=== PATIENT | female | born 1970 | race African-American/Black ===

== ENCOUNTER 2017-04-03 23:10 | Emergency (ER) | payer OTHER ==
[2017-04-03 23:53] VITALS: BP 155/89; PULSE 101; TEMP 98.1; BMI 33.2
[2017-04-03] MEDS ORDERED: predniSONE 20 MG TABLET (UD) ONE (23:55)
[2017-04-03] MEDS ORDERED: AZITHROMYCIN 250 MG TABLET ONE (23:55)
[2017-04-03] MEDS ORDERED: ALBUTEROL SO4 2.5/IPRATROPIUM 0.5 INH SOL 3 ML VIAL.NEB. NEB STA (23:57)
--- NOTE | 2017-04-03 23:57 | PDOC ---
History of Present Illness - General History Source: Patient Exam Limitations: No Limitations - History of Present Illness Initial Comments: 04/04/17 00:13 The patient is a 46 year old female, with a significant past medical history of Asthma, CVA (with R arm weakness), COPD who presents to the emergency department with productive cough (clear) for the past 3 days. Patient tried many OTC medications however denied any relief. Patient complains of intermittent chest tightness and SOB. Patient denies any sick contacts or recent travel. Patient denies any fever or chills. She denies headache or dizziness. She denies abdominal pain, nausea, vomit, diarrhea or constipation. She denies dysuria, frequency, urgency or hematuria. Allergies: morphine, propoxyphene napsylate Past surgical history: appendectomy, cholecystectomy Social history: None PCP: Dr. Flanagan <Wilda Verduzco - Last Filed: 04/04/17 00:13> - General History Source: Patient <Delonte Motley - Last Filed: 04/04/17 01:44> - General Chief Complaint: Asthma Stated Complaint: ASTHMA Time Seen by Provider: 04/03/17 23:51 Past History <Wilda Verduzco - Last Filed: 04/04/17 00:13> - Past Medical History Anemia: No Asthma: Yes Cancer: No Cardiac Disorders: No CVA: Yes (RT ARM WEAKNESS,TIA) COPD: Yes CHF: No Dementia: No Diabetes: No GI Disorders: No Disorders: No HTN: Yes Hypercholesterolemia: No Liver Disease: No Seizures: No Thyroid Disease: No - Surgical History Abdominal Surgery: Yes Appendectomy: Yes Cardiac Surgery: No Cholecystectomy: Yes Lung Surgery: No Neurologic Surgery: No Orthopedic Surgery: No - Immunization History Immunization Up to Date: Yes - Suicide/Smoking/Psychosocial Hx Smoking Status: No Smoking History: Never smoked Have you smoked in the past 12 months: No Number of Cigarettes Smoked Daily: 0 Information on smoking cessation initiated: No Hx Alcohol Use: No Drug/Substance Use Hx: No Substance Use Type: None Hx Substance Use Treatment: No <Delonte Motley - Last Filed: 04/04/17 01:44> - Past Medical History Allergies/Adverse Reactions: Allergies Allergy/AdvReac Type Severity Reaction Status Date / Time morphine Allergy Itching Verified 04/03/17 23:53 propoxyphene napsylate Allergy Itching Verified 04/03/17 23:53 [From Gwen-N 100] Home Medications: Ambulatory Orders Lisinopril [Prinivil] 10 mg PO DAILY 09/23/15 Naproxen [Naprosyn -] 500 mg PO BID #14 tablet 05/01/16 Azithromycin [Zithromax -] 250 mg PO UTDICT #6 tab 04/04/17 Ibuprofen 800 mg PO TID #30 tablet 04/04/17 Methylprednisolone [Medrol Dose Silvino] 4 mg PO ASDIR #21 tablet 04/04/17 Review of Systems - Review of Systems Able to Perform ROS?: Yes Comments:: 04/04/17 00:13 GENERAL/CONSTITUTIONAL: No fever or chills. No weakness. HEAD, EYES, EARS, NOSE AND THROAT: No change in vision. No ear pain or discharge. No sore throat. GASTROINTESTINAL: No nausea, vomiting, diarrhea or constipation. GENITOURINARY: No dysuria, frequency, or change in urination. CARDIOVASCULAR: No chest pain or shortness of breath. RESPIRATORY: + cough + SOB. No wheezing, or hemoptysis. MUSCULOSKELETAL: No joint or muscle swelling or pain. No neck or back pain. SKIN: No rash NEUROLOGIC: No headache, vertigo, loss of consciousness, or change in strength/ sensation. ENDOCRINE: No increased thirst. No abnormal weight change. HEMATOLOGIC/LYMPHATIC: No anemia, easy bleeding, or history of blood clots. ALLERGIC/IMMUNOLOGIC: No hives or skin allergy. <Wilda Verduzco - Last Filed: 04/04/17 00:13> *Physical Exam - Vital Signs Last Vital Signs Temp Pulse Resp BP Pulse Ox 98.1 F 101 H 24 155/89 96 04/03/17 23:51 04/03/17 23:51 04/03/17 23:51 04/03/17 23:51 04/03/17 23:51 - Physical Exam Comments: 04/04/17 00:13 GENERAL: Awake, alert, and fully oriented, in no acute distress HEAD: No signs of trauma EYES: PERRLA, EOMI, sclera anicteric, conjunctiva clear ENT: Auricles normal inspection, hearing grossly normal, nares patent, oropharynx clear without exudates. Moist mucosa NECK: Normal ROM, supple, no lymphadenopathy, JVD, or masses LUNGS: +Decreased breath sounds bilaterally. Clear to auscultation bilaterally. No wheezes, and no crackles HEART: Regular rate and rhythm, normal S1 and S2, no murmurs, rubs or gallops ABDOMEN: Soft, nontender, normoactive bowel sounds. No guarding, no rebound. No masses EXTREMITIES: Normal range of motion, no edema. No clubbing or cyanosis. No cords, erythema, or tenderness NEUROLOGICAL: Cranial nerves II through XII grossly intact. Normal speech, normal gait SKIN: Warm, Dry, normal turgor, no rashes or lesions noted. <Wilda Verduzco - Last Filed: 04/04/17 00:13> - Vital Signs Last Vital Signs Temp Pulse Resp BP Pulse Ox 98.1 F 101 H 24 155/89 96 04/03/17 23:51 04/03/17 23:51 04/03/17 23:51 04/03/17 23:51 04/03/17 23:51 <Delonte Motley - Last Filed: 04/04/17 01:44> ED Treatment Course - Medications Given in the ED: ED Medications Discontinued Medications Generic Name Dose Route Start Last Admin Trade Name Freq PRN Reason Stop Dose Admin Albuterol/Ipratropium 1 amp 04/03/17 23:59 04/04/17 00:00 Duoneb - NEB 04/04/17 00:00 1 amp NOW ONE Administration Azithromycin 500 mg 04/03/17 23:58 04/03/17 23:59 Zithromax - PO 04/03/17 23:59 500 mg ONCE STA Administration Prednisone 60 mg 04/03/17 23:58 04/03/17 23:59 Deltasone - PO 04/03/17 23:59 Not Given ONCE ONE Prednisone 60 mg 04/03/17 23:58 04/03/17 23:58 Deltasone - PO 04/03/17 23:59 60 mg NOW ONE Administration <Wilda Verduzco - Last Filed: 04/04/17 00:13> - LABORATORY CBC & Chemistry Diagram: 04/04/17 00:49 04/04/17 00:49 <Delonte Motley - Last Filed: 04/04/17 01:44> Medical Decision Making - Medical Decision Making 04/04/17 01:43 Dr. Motley: The scribe's documentation has been prepared under my direction and personally reviewed by me in its entirery. I confirm that the note above accurately reflects all work, treatment, procedures, and medical decision making performed by me. <Delonte Motley - Last Filed: 04/04/17 01:44> *DC/Admit/Observation/Transfer - Attestations Scribe Attestion: 04/04/17 00:13 Documentation prepared by Wilda Verduzco, acting as medical language specialist for Delonte Motley DO <Wilda Verduzco - Last Filed: 04/04/17 00:13> - Discharge Dispostion Admit: No <Delonte Motley - Last Filed: 04/04/17 01:44> Diagnosis at time of Disposition: Asthma exacerbation - Discharge Dispostion Disposition: HOME Condition at time of disposition: Improved - Referrals Referrals: Tyler Flanagan MD [Primary Care Provider] - - Patient Instructions Printed Discharge Instructions: Asthma -- Adult
[2017-04-03] MEDS ORDERED: AZITHROMYCIN 250 MG TABLET PO STA (23:58)
[2017-04-03] MEDS ORDERED: predniSONE 20 MG TABLET (UD) PO ONE ×2 (23:58)
[2017-04-03] MEDS ORDERED: ALBUTEROL SO4 2.5/IPRATROPIUM 0.5 INH SOL 3 ML VIAL.NEB. NEB ONE (23:59)
[2017-04-04] MEDS ORDERED: MAGNESIUM SULF 50% (8.12 MEQ/2 ML-1 GM VIAL) IVPB ONE (00:36)
[2017-04-04 00:54] LABS: BASOPHIL 0.5 % (0-2.0); EOSINOPHIL 0.8 % (0-4.5); MCH 27.8 pg (25.7-33.7); MCHC 33.3 g/dl (32.0-36.0); MEAN CELL VOLUME 83.5 fl (80-96); MEAN PLT VOLUME 7.7 fl (7.5-11.1); PLATELET COUNT 263 K/MM3 (134-434); RDW 14.3 % (11.6-15.6); WHITE BLOOD COUNT 11.1 K/mm3 (4.0-10.0)
[2017-04-04] MEDS ORDERED: MAGNESIUM SULF 50% (8.12 MEQ/2 ML-1 GM VIAL) ONE (01:07)
== END 2017-04-04 02:13 | disposition home or self-care (01) ==
LOC: SUPCPDRO 23:10 → JER 23:10
PROC: 3E0F7GC Introduction of Other Therapeutic Substance into Respiratory Tract, Via Natural or Artificial Opening (ICD-10-PCS; principal; 2017-04-03)
PROC: 3E0F7GC Introduction of Other Therapeutic Substance into Respiratory Tract, Via Natural or Artificial Opening (ICD-10-PCS; 2017-04-03)
PROC: 3E033GC Introduction of Other Therapeutic Substance into Peripheral Vein, Percutaneous Approach (ICD-10-PCS; 2017-04-03)
DX: J45.901 Unspecified asthma with (acute) exacerbation (principal); J44.9 Chronic obstructive pulmonary disease, unspecified; I69.851 Hemiplegia and hemiparesis following other cerebrovascular disease affecting right dominant side
CPT/HCPCS: 36415; 85025; 94640; 96374; 99282-25

== ENCOUNTER 2017-04-18 11:08 | Inpatient (IN) | payer OTHER ==
[2017-04-18 11:15] VITALS: BMI 34.7
--- NOTE | 2017-04-18 11:40 | PDOC ---
History of Present Illness <Alvaro Fuentes - Last Filed: 04/18/17 14:04> - General History Source: Patient Exam Limitations: No Limitations - History of Present Illness Initial Comments: 04/18/17 16:50 The patient is a 46 year old female, with a significant past medical history of Asthma (previously intubated and admitted 3x), CVA, COPD, HTN who presents to the emergency department with chest pressure, cough and SOB for the past week. Patient was previously seen for cough in PMDs office and was given abx and steroids. Patients symptoms did not resolve and was continued on second course of steroids. Patient symptoms progressively worsened today with chills and cold sweats and chest discomfort. Patient attempted OTC medications with no relief. Patient reports her respiratory symptoms are similar in nature to her Asthma however feels new. Patient finished last course of steroids 2 days ago and presents to the ED for further evaluation. Patient reports sick contacts at work , and recent URI. She denies chest pain, headache or dizziness. She denies fever , chills, abdominal pain, nausea, vomit, diarrhea or constipation. She denies dysuria, frequency, urgency or hematuria. Allergies: morphine, propoxyphene napsylate Past surgical history: Appendectomy, Cholecystectomy Social history: None PCP: Dr. Disha Flanagan <Wilda Verduzco - Last Filed: 04/18/17 16:51> - General Chief Complaint: Respiratory Stated Complaint: SOB Time Seen by Provider: 04/18/17 11:39 Past History - Past Medical History Anemia: No Asthma: Yes Cancer: No Cardiac Disorders: No CVA: Yes (RT ARM WEAKNESS,TIA) COPD: Yes CHF: No Dementia: No Diabetes: No GI Disorders: No Disorders: No HTN: Yes Hypercholesterolemia: No Liver Disease: No Seizures: No Thyroid Disease: No - Surgical History Abdominal Surgery: Yes Appendectomy: Yes Cardiac Surgery: No Cholecystectomy: Yes Lung Surgery: No Neurologic Surgery: No Orthopedic Surgery: No - Immunization History Immunization Up to Date: Yes - Suicide/Smoking/Psychosocial Hx Smoking Status: No Smoking History: Never smoked Have you smoked in the past 12 months: No Number of Cigarettes Smoked Daily: 0 Hx Alcohol Use: No Drug/Substance Use Hx: No Substance Use Type: None Hx Substance Use Treatment: No <Alvaro Fuentes - Last Filed: 04/18/17 14:04> <Wilda Verduzco - Last Filed: 04/18/17 16:51> - Past Medical History Allergies/Adverse Reactions: Allergies Allergy/AdvReac Type Severity Reaction Status Date / Time morphine Allergy Itching Verified 04/03/17 23:53 propoxyphene napsylate Allergy Itching Verified 04/03/17 23:53 [From Darvocet-N 100] Home Medications: Ambulatory Orders Lisinopril [Prinivil] 10 mg PO DAILY 09/23/15 Albuterol 0.083% Nebulizer Leticia [Ventolin 0.083% Nebulizer Soln -] 1 neb NEB Q6H PRN 04/18/17 Albuterol Sulfate Inhaler - [Ventolin Hfa Inhaler -] 1 - 2 inh PO Q4H PRN Review of Systems - Review of Systems Able to Perform ROS?: Yes Comments:: 04/18/17 16:50 GENERAL/CONSTITUTIONAL: No fever or chills. No weakness. HEAD, EYES, EARS, NOSE AND THROAT: No change in vision. No ear pain or discharge. No sore throat. CARDIOVASCULAR: No chest pain or shortness of breath. RESPIRATORY: +cough, wheezing. No hemoptysis. GASTROINTESTINAL: No nausea, vomiting, diarrhea or constipation. GENITOURINARY: No dysuria, frequency, or change in urination. MUSCULOSKELETAL: No joint or muscle swelling or pain. No neck or back pain. SKIN: No rash NEUROLOGIC: No headache, vertigo, loss of consciousness, or change in strength/ sensation. ENDOCRINE: No increased thirst. No abnormal weight change. HEMATOLOGIC/LYMPHATIC: No anemia, easy bleeding, or history of blood clots. ALLERGIC/IMMUNOLOGIC: No hives or skin allergy. <Wilda Verduzco - Last Filed: 04/18/17 16:51> *Physical Exam - Vital Signs Last Vital Signs Temp Pulse Resp BP Pulse Ox 98.6 F 89 22 108/64 100 04/18/17 11:11 04/18/17 11:11 04/18/17 11:11 04/18/17 11:11 04/18/17 11:11 <Alvaro Fuentes - Last Filed: 04/18/17 14:04> - Vital Signs Last Vital Signs Temp Pulse Resp BP Pulse Ox 98.1 F 83 22 138/77 100 04/18/17 15:56 04/18/17 15:56 04/18/17 15:56 04/18/17 15:56 04/18/17 15:00 - Physical Exam Comments: 04/18/17 16:50 GENERAL: Awake, alert, and fully oriented, in no acute distress HEAD: No signs of trauma EYES: PERRLA, EOMI, sclera anicteric, conjunctiva clear ENT: Auricles normal inspection, hearing grossly normal, nares patent, oropharynx clear without exudates. Moist mucosa NECK: Normal ROM, supple, no lymphadenopathy, JVD, or masses LUNGS: +Poor air movement +with mild wheezing in R middle lobe. No crackles HEART: Regular rate and rhythm, normal S1 and S2, no murmurs, rubs or gallops ABDOMEN: Soft, nontender, normoactive bowel sounds. No guarding, no rebound. No masses EXTREMITIES: Normal range of motion, no edema. No clubbing or cyanosis. No cords, erythema, or tenderness NEUROLOGICAL: Normal speech, cranial nerves intact, negative pronator drift, 5/ 5 strength in all 4 extremities, normal sensation to light touch in all 4 extremities, normal cerebellar exam, normal gait, normal reflexes and tone SKIN: Warm, Dry, normal turgor, no rashes or lesions noted. <Wilda Verduzco - Last Filed: 04/18/17 16:51> ED Treatment Course - LABORATORY CBC & Chemistry Diagram: 04/18/17 12:14 04/18/17 12:14 <Alvaro Fuentes - Last Filed: 04/18/17 14:04> - LABORATORY CBC & Chemistry Diagram: 04/18/17 12:14 04/18/17 12:14 - ADDITIONAL ORDERS Additional order review: Laboratory Results 04/18/17 04/18/17 04/18/17 12:55 12:14 12:14 D-Dimer < 200 VBG pH 7.30 L POC VBG pCO2 50.0 POC VBG pO2 80.1 H Mixed VBG HCO3 24.2 Sodium Potassium Chloride Carbon Dioxide Anion Gap BUN Creatinine Creat Clearance w eGFR Random Glucose Calcium Total Bilirubin AST ALT Alkaline Phosphatase Troponin I < 0.02 Total Protein Albumin Urine HCG, Qual 04/18/17 04/18/17 12:14 12:14 D-Dimer VBG pH POC VBG pCO2 POC VBG pO2 Mixed VBG HCO3 Sodium 140 Potassium 3.9 Chloride 106 Carbon Dioxide 27 Anion Gap 7 L BUN 9 Creatinine 0.9 Creat Clearance w eGFR > 60 Random Glucose 101 D Calcium 9.0 Total Bilirubin 0.3 AST 14 L D ALT 21 D Alkaline Phosphatase 96 Troponin I Total Protein 6.8 Albumin 3.5 Urine HCG, Qual Negative 04/18/17 13:54 Influenza Types A,B Antigen (ARIELLE) - Final Nasopharyngeal Swab - Final 04/18/17 12:14 RBC 4.39 MCV 83.2 MCHC 32.5 RDW 14.0 MPV 7.8 Neutrophils % 61.9 Lymphocytes % 33.2 Monocytes % 4.3 Eosinophils % 0.4 Basophils % 0.2 - Medications Given in the ED: ED Medications Discontinued Medications Generic Name Dose Route Start Last Admin Trade Name Freq PRN Reason Stop Dose Admin Albuterol Sulfate 1 amp 04/18/17 12:02 04/18/17 15:02 Ventolin 0.083% Nebulizer Soln - NEB 04/18/17 12:33 1 amp Q15M PRN Administration Dyspnea Albuterol/Ipratropium 1 amp 04/18/17 12:02 04/18/17 12:30 Duoneb - NEB 04/18/17 12:03 1 amp ONCE ONE Administration Guaifenesin 1 tablet 04/18/17 13:10 04/18/17 14:30 Mucinex Dm - PO 04/18/17 13:11 1 tablet ONCE ONE Administration Magnesium Sulfate 2 gm 04/18/17 12:02 04/18/17 12:30 Magnesium Sulfate IVPB 04/18/17 12:03 2 gm ONCE ONE Administration Methylprednisolone Sodium Succinate 125 mg 04/18/17 12:02 04/18/17 12:30 Solu-Medrol - IVPB 04/18/17 12:03 125 mg ONCE ONE Administration Methylprednisolone Sodium Succinate 40 mg 04/18/17 15:00 04/18/17 16:12 Solu-Medrol - IVPB Not Given Q6H-IV CESAR <Wilda Verduzco - Last Filed: 04/18/17 16:51> Medical Decision Making - Medical Decision Making 04/18/17 13:00 46-year-old female with a history of asthma complicated by multiple admissions and intubations, multiple medical problems presents with 3 weeks of a progressive asthma exacerbation despite 2 courses of steroids and outpatient antibiotics. Vitals are unremarkable. Exam remarkable for poor air movement and mild wheezing. Peak flow initially was 150. Given the chest pain/chronicity of the symptoms despite steroids abx, ACS, CHF, and PE are on the differential. Plan: -labs -dimer -cxr -nebs -flu swab -methylpred -Mg -admit 04/18/17 13:59 Chest x-ray unremarkable. Labs including d-dimer and troponin are negative. Repeat peak flow s/p nebs is 250. Will admit for asthma exacerbation, spoke with CHINA Fong from hospitalist team. Case discussed in detail with admitting physician including history, physical exam and ancillary studies. Admitting physician has assumed care for the patient, will follow all pending diagnostics and will complete the evaluation and treatment. 04/18/17 14:04 <Alvaro Fuentes - Last Filed: 04/18/17 14:04> *DC/Admit/Observation/Transfer - Discharge Dispostion Admit: Yes - Attestations Physician Attestion: 04/18/17 13:56 I, Dr. Alvaro Fuentes MD, attest that this document has been prepared under my direction and personally reviewed by me in its entirety. I further attest, that it accurately reflects all work, treatment, procedures and medical decision -making performed by me. <Alvaro Fuentes - Last Filed: 04/18/17 14:04> - Attestations Scribe Attestion: 04/18/17 16:51 Documentation prepared by Wilda Verduzco, acting as medical field representative for Alvaro Fuentes MD <Wilda Verduzco - Last Filed: 04/18/17 16:51> Diagnosis at time of Disposition: Asthma - Discharge Dispostion Condition at time of disposition: Stable - Referrals
[2017-04-18] MEDS ORDERED: ALBUTEROL SO4 2.5/IPRATROPIUM 0.5 INH SOL 3 ML VIAL.NEB. NEB ONE ×2 (12:02→12:15)
[2017-04-18] MEDS ORDERED: methylPREDNISolone NA SUCC 125 MG/2 ML VIAL IVPB ONE (12:02)
[2017-04-18] MEDS ORDERED: MAGNESIUM SULF 50% (8.12 MEQ/2 ML-1 GM VIAL) IVPB ONE (12:02)
[2017-04-18] MEDS ORDERED: methylPREDNISolone NA SUCC 125 MG/2 ML VIAL ONE (12:15)
[2017-04-18] MEDS ORDERED: MAGNESIUM SULF 50% (8.12 MEQ/2 ML-1 GM VIAL) ONE (12:15)
[2017-04-18] MEDS ORDERED: ALBUTEROL SO4 0.083% IH SOL 2.5 MG/3 ML VIAL.NEB. NEB ONE (12:15)
[2017-04-18] MEDS: ALBUTEROL SO4 0.083% IH SOL 2.5 MG/3 ML VIAL.NEB. NEB PRN ×3 (12:50→15:02)
[2017-04-18 12:52] LABS: BASOPHIL 0.2 % (0-2.0); EOSINOPHIL 0.4 % (0-4.5); MCH 27.1 pg (25.7-33.7); MCHC 32.5 g/dl (32.0-36.0); MEAN CELL VOLUME 83.2 fl (80-96); MEAN PLT VOLUME 7.8 fl (7.5-11.1); NEUTROPHILS 61.9 % (42.8-82.8); PLATELET COUNT 312 K/MM3 (134-434); WHITE BLOOD COUNT 10.5 K/mm3 (4.0-10.0)
[2017-04-18 13:06] LABS: VENOUS BLOOD GAS HCO3 24.2 meq/L (19-25)
[2017-04-18 13:07] LABS: VENOUS PH 7.3 (7.32-7.42)
[2017-04-18] MEDS ORDERED: guaiFENesin/D-METHORPHAN HB 1 EACH TAB.ER.12H PO ONE (13:10)
[2017-04-18 13:30] LABS: ALBUMIN 3.5 g/dl (3.4-5.0); ANION GAP 7 (8-16); BILIRUBIN,TOTAL 0.3 mg/dL (0.2-1.0); CO2 27 mmol/L (21-32); CREATININE 0.9 mg/dL (0.55-1.02); GLUCOSE,RANDOM 101 mg/dL (74-106); SGOT/AST 14 U/L (15-37); SGPT/ALT 21 U/L (12-78); TOT PROT 6.8 g/dl (6.4-8.2)
[2017-04-18 13:31] LABS: ALK PHOS 96 U/L (45-117)
[2017-04-18] MEDS ORDERED: ALBUTEROL SO4 2.5/IPRATROPIUM 0.5 INH SOL 3 ML VIAL.NEB. NEB PRN (14:32)
--- NOTE | 2017-04-18 14:47 | HP ---
CHIEF COMPLAINT: "I am having difficulty breathing" PCP: Dr. Flanagan HISTORY OF PRESENT ILLNESS: This is a 46 year old female with PMHx of asthma (hx of intubations), HLD, who presented to the ED with difficulty breathing, dyspnea on exertion since 03/29. The patient reports she saw her pcp twice since 03/29 and was placed on steroid tapers and a Zpak which she completed about 1 week ago. She reports not feeling better with those medications and also having a productive cough. She reports having been intubated in the past 2/2 asthma. The patient denies fever, chills, chest pain, nausea, vomiting, dizziness, headache, lower extremity edema. 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 ER course was notable for: (1) d-dimer negative (2) Solu-medrol 125mg IVPB (3) Chest x-ray with no acute lung disease present Recent Travel: denies PAST MEDICAL HISTORY: as above Social History: Smoking: denies Alcohol: denies Drugs: denies Family History: Allergies morphine Allergy (Verified 04/03/17 23:53) Itching propoxyphene napsylate [From Darvocet-N 100] Allergy (Verified 04/03/17 23:53) Itching HOME MEDICATIONS: Home Medications Medication Instructions Recorded Lisinopril [Prinivil] 10 mg PO DAILY 09/23/15 Albuterol 0.083% Nebulizer Leticia 1 neb NEB Q6H PRN 04/18/17 [Ventolin 0.083% Nebulizer Soln -] Albuterol Sulfate Inhaler - 1 - 2 inh PO Q4H PRN 04/18/17 [Ventolin Hfa Inhaler -] REVIEW OF SYSTEMS CONSTITUTIONAL: Absent: fever, chills, diaphoresis, generalized weakness, malaise, loss of appetite, weight change HEENT: Absent: rhinorrhea, nasal congestion, throat pain, throat swelling, difficulty swallowing, mouth swelling, ear pain, eye pain, visual changes CARDIOVASCULAR: Absent: chest pain, syncope, palpitations, irregular heart rate , lightheadedness, peripheral edema RESPIRATORY: + productive cough and shortness of breath since 03/29/17. Failed outpatient steroids and antibiotics. Absent: orthopnea, wheezing, stridor, hemoptysis GASTROINTESTINAL:Absent: abdominal pain, abdominal distension, nausea, vomiting , diarrhea, constipation, melena, hematochezia GENITOURINARY: Absent: dysuria, frequency, urgency, hesitancy, hematuria, flank pain, genital pain MUSCULOSKELETAL: Absent: myalgia, arthralgia, joint swelling, back pain, neck pain SKIN: Absent: rash, itching, pallor HEMATOLOGIC/IMMUNOLOGIC: Absent: easy bleeding, lymphadenopathy ENDOCRINE:Absent: unexplained weight gain, unexplained weight loss, heat intolerance, cold intolerance NEUROLOGIC: Absent: headache, focal weakness or paresthesias, dizziness, unsteady gait, seizure, mental status changes, bladder or bowel incontinence PSYCHIATRIC: Absent: anxiety, depression PHYSICAL EXAMINATION Vital Signs - 24 hr 04/18/17 11:11 Temperature 98.6 F Pulse Rate 89 Respiratory 22 Rate Blood Pressure 108/64 O2 Sat by Pulse 100 Oximetry (%) GENERAL: Awake, alert, and fully oriented, in no acute distress. HEAD: Normal with no signs of trauma. EYES: Pupils equal, round and reactive to light, sclera anicteric, conjunctiva clear. No lid lag. EARS, NOSE, THROAT: Ears normal, nares patent, Moist mucous membranes. NECK: Normal range of motion, supple without lymphadenopathy LUNGS: Decreased breath sounds bilaterally. Increased work of breathing. No accessory muscles or wheezing noted HEART: Regular rate and rhythm, normal S1 and S2 without murmur, rub or gallop. ABDOMEN: Soft, nontender, not distended, normoactive bowel sounds, no guarding, no rebound, no masses. No hepatomegaly or splenomegaly. MUSCULOSKELETAL: Normal range of motion at all joints. No bony deformities or tenderness. No CVA tenderness. UPPER EXTREMITIES: 2+ pulses, warm, well-perfused. No cyanosis. No clubbing. No peripheral edema. LOWER EXTREMITIES: 2+ pulses, warm, well-perfused. No calf tenderness. No peripheral edema. NEUROLOGICAL: Cranial nerves II-XII intact. Normal speech. Normal gait. PSYCHIATRIC: Cooperative. Good eye contact. Appropriate mood and affect. SKIN: Warm, dry, normal turgor, no rashes or lesions noted, normal capillary refill. CBCD WBC 10.5 K/mm3 (4.0-10.0) H 04/18/17 12:14 RBC 4.39 M/mm3 (3.60-5.2) 04/18/17 12:14 Hgb 11.9 GM/dL (10.7-15.3) 04/18/17 12:14 Hct 36.5 % (32.4-45.2) 04/18/17 12:14 MCV 83.2 fl (80-96) 04/18/17 12:14 MCHC 32.5 g/dl (32.0-36.0) 04/18/17 12:14 RDW 14.0 % (11.6-15.6) 04/18/17 12:14 Plt Count 312 K/MM3 (134-434) 04/18/17 12:14 MPV 7.8 fl (7.5-11.1) 04/18/17 12:14 CMP Sodium 140 mmol/L (136-145) 04/18/17 12:14 Potassium 3.9 mmol/L (3.5-5.1) 04/18/17 12:14 Chloride 106 mmol/L (98-107) 04/18/17 12:14 Carbon Dioxide 27 mmol/L (21-32) 04/18/17 12:14 Anion Gap 7 (8-16) L 04/18/17 12:14 BUN 9 mg/dL (7-18) 04/18/17 12:14 Creatinine 0.9 mg/dL (0.55-1.02) 04/18/17 12:14 Creat Clearance w eGFR > 60 (>60) 04/18/17 12:14 Random Glucose 101 mg/dL (74-106) D 04/18/17 12:14 Calcium 9.0 mg/dL (8.5-10.1) 04/18/17 12:14 Total Bilirubin 0.3 mg/dL (0.2-1.0) 04/18/17 12:14 AST 14 U/L (15-37) L D 04/18/17 12:14 ALT 21 U/L (12-78) D 04/18/17 12:14 Alkaline Phosphatase 96 U/L (45-117) 04/18/17 12:14 Total Protein 6.8 g/dl (6.4-8.2) 04/18/17 12:14 Albumin 3.5 g/dl (3.4-5.0) 04/18/17 12:14 CARDIAC ENZYMES Troponin I < 0.02 ng/ml (0.00-0.05) 04/18/17 12:14 Assessment: This is a 46 year old female with PMHx of asthma (hx of intubations) , HTN, who presented to the ED with difficulty breathing, dyspnea on exertion since 03/29. Plan: 1) Acute asthma exacerbation - Solumedrol 40mg IVPB q6h - Duonebs q4h - Start Singulair - Start Symbicort - F/u Influenza A&B screen - Monitor closely - F/u pulmonary consult 2) HTN - Continue Lisinopril 3) F/E/N: - Sodium controlled diet - Monitor electrolytes 4) Prophylaxis: - OOB ambulating - Heparin 5,000u sq tid (patient with GARCIA so spends most of day in bed) 5) Dispo: - Once condition improves, requires continued inpatient care CODE STATUS: FULL CODE Problem List - Problem (1) Asthma exacerbation Code(s): J45.901 - UNSPECIFIED ASTHMA WITH (ACUTE) EXACERBATION Visit type - Emergency Visit Emergency Visit: Yes Care time: The patient presented to the Emergency Department on the above date and was hospitalized for further evaluation of their emergent condition. - New Patient This patient is new to me today: Yes Date on this admission: 04/18/17 - Critical Care Critical Care patient: No
[2017-04-18] MEDS ORDERED: methylPREDNISolone NA SUCC 40 MG/1 ML VIAL IVPB SCH (15:00)
--- NOTE | 2017-04-18 15:57 | PN ---
Progress Note (short form) - Note Progress Note: PULMONARY CONSULTATION DICTATED 04/18/17 IMP CHRONIC PERSISTENT ASTHMA WITH ACUTE EXACERBATION URI H/O INTUBATION X2 HTN S/P CVA R/O OSAS PLAN IV STEROIDS INHALED BRONCHODILATORS INHALED STEROIDS MONITOR PEAK FLOW ANTI-TUSSIVES SLEEP SCREEN DR PARDO Problem List - Problems (1) Asthma Code(s): J45.909 - UNSPECIFIED ASTHMA, UNCOMPLICATED (2) Bronchitis Code(s): J40 - BRONCHITIS, NOT SPECIFIED ACUTE OR CHRONIC (3) Acute dyspnea Code(s): R06.00 - DYSPNEA, UNSPECIFIED (4) Asthma exacerbation Code(s): J45.901 - UNSPECIFIED ASTHMA WITH (ACUTE) EXACERBATION (5) HTN (hypertension) Code(s): I10 - ESSENTIAL (PRIMARY) HYPERTENSION (6) History of CVA in adulthood Code(s): Z86.73 - PRSNL HX OF TIA (TIA), AND CEREB INFRC W/O RESID DEFICITS
[2017-04-18] MEDS ORDERED: PT OWN MED DRAWER 7, Y5N ONE ×2 (16:14→21:09)
[2017-04-18] MEDS: HEPARIN NA (PORCINE) 5,000 UNITS/ML 1ML VIAL SQ SCH (17:31)
[2017-04-18] MEDS: TIOTROPIUM BROMIDE 18 MCG/INH (DEVICE W/ 5 CAPSULES) IH SCH (17:31)
[2017-04-18] MEDS: ALBUTEROL SO4 0.5 % INH SOLN 2.5 MG/0.5 ML VIAL.NEB. NEB PRN ×2 (18:42→22:50)
--- NOTE | 2017-04-18 19:27 | CONS ---
DATE OF CONSULTATION: 04/18/2017 REFERRING PROVIDER: GARY Thorne The patient is a 46-year-old black female, known to me from previous hospitalization, with a past medical history of chronic persistent asthma, history of intubations x2, hyperlipidemia, hypertension, history of CVA, admitted to [facility] with a complaint of 3-week history of increasing shortness of breath, cough, and bronchospasm. Patient states she developed the above symptoms approximately 3 weeks ago. At the time, she was placed on prednisone 20 mg and started on antibiotic. Symptoms did not improve, at which time a couple of weeks ago she presented to the emergency room. In the ER, she was given high-dose steroid, which initially offered improvement, and discharged home. Again, she lowered her prednisone dose and started developing some shortness of breath, cough productive of greenish sputum, and wheezing. She presented back to the emergency room with the above today. As stated before, she has a history of intubation x2, last being in 2013. She is a nonsmoker. There is no history of occupational exposure to chemicals or fumes. She states that she uses inhaled beta agonists 3 to 4 times daily and has frequent nocturnal symptoms requiring use of inhaled beta agonist. She also states she is a heavy snorer, has occasional daytime sleepiness and witnessed apnea episodes. She denies any history of DVT or PE in the past. PAST MEDICAL HISTORY: Again, asthma, hypertension, hyperlipidemia, CVA. Current medications include Symbicort, Solu-Medrol, Prinivil, heparin, DuoNeb, and Singulair. REVIEW OF SYSTEMS: Positive cough, positive shortness of breath. No fever, no chills. No chest pain, no palpitation. No abdominal pain. No lower extremity edema. PHYSICAL EXAMINATION: General: A well-developed, well-nourished female, awake, alert, in no acute distress. Vital Signs: She is currently afebrile. Blood pressure 138/77. Respiratory rate 22. O2 saturation is 100% on nasal cannula. HEENT: Normocephalic, atraumatic. Neck: Supple without adenopathy. Heart: Regular, S1, S2. Chest: Scattered bilateral wheezes. Abdomen: Soft. Bowel sounds are positive. Extremities: No cyanosis, edema. LABORATORY DATA: WBC 10.5, hemoglobin 11.9, hematocrit 36.5, platelet count 312,000. D-dimer less than 200, pH 7.30, pCO2 of 50, a pO2 of 80, bicarbonate 24, BUN 9, creatinine 0.9. Chest x-ray: No infiltrates, no effusions. IMPRESSION: 1. Chronic persistent asthma, acute exacerbation, likely secondary to recent upper respiratory infection. 2. History of respiratory failure in the past, requiring ventilatory support. 3. Hypertension. 4. Status post cerebrovascular accident. 5. Likely obstructive sleep apnea. PLAN: IV steroids, inhaled bronchodilators. Monitor peak flow. Antitussives. Also a sleep screen. MASTER PARDO M.D. [id number]
[2017-04-18] MEDS: MONTELUKAST NA 10 MG TABLET PO SCH (21:20)
[2017-04-18] MEDS: BUDESONIDE/FORMETEROL FUMARATE 160/4.5 mcg INHALER IH SCH (21:21)
[2017-04-18] MEDS: methylPREDNISolone NA SUCC 40 MG/1 ML VIAL IVPB SCH (21:22)
[2017-04-18] MEDS ORDERED: MELATONIN 5 MG TABLETS PO ONE (22:32)
[2017-04-18] MEDS: guaiFENesin/D-METHORPHAN HB 10 ML UNIT-DOSE CUPS PO PRN (23:04)
[2017-04-19] MEDS: methylPREDNISolone NA SUCC 40 MG/1 ML VIAL IVPB SCH ×3 (02:03→17:39)
[2017-04-19] MEDS: HEPARIN NA (PORCINE) 5,000 UNITS/ML 1ML VIAL SQ SCH ×3 (02:07→18:55)
[2017-04-19 07:37] LABS: MCH 26.9 pg (25.7-33.7); MCHC 32.4 g/dl (32.0-36.0); MEAN CELL VOLUME 83.2 fl (80-96); MEAN PLT VOLUME 8.2 fl (7.5-11.1); PLATELET COUNT 320 K/MM3 (134-434); RDW 14.4 % (11.6-15.6); WHITE BLOOD COUNT 22.9 K/mm3 (4.0-10.0)
[2017-04-19 07:56] LABS: ALBUMIN 3.2 g/dl (3.4-5.0); ANION GAP 8 (8-16); CALCIUM 9.4 mg/dL (8.5-10.1); CO2 24 mmol/L (21-32); CREATININE 0.9 mg/dL (0.55-1.02); GLUCOSE,RANDOM 139 mg/dL (74-106); MAGNESIUM 2.3 mg/dL (1.8-2.4); PHOSPHOROUS 2.6 mg/dL (2.5-4.9); SGOT/AST 12 U/L (15-37); SGPT/ALT 18 U/L (12-78)
[2017-04-19 07:58] LABS: ALK PHOS 93 U/L (45-117); BILIRUBIN,TOTAL 0.3 mg/dL (0.2-1.0)
--- NOTE | 2017-04-19 08:19 | PN ---
Physical Exam: SUBJECTIVE: Patient seen and examined at bedside. She is doing much better, breathing is better, no wheezing, still has nonproductive cough, but no other complaints. She denies fever, chills, N/V/D/C. Peak flow done at bedside 250, BPF 250. OBJECTIVE: Vital Signs Period Temp Pulse Resp BP Sys/Shay Pulse Ox Last 24 Hr 97.7 F-98.1 F 65-85 18-22 124-146/71-82 97-100 GENERAL: Awake, alert, and fully oriented, in no acute distress HEAD: Normal with no signs of trauma EYES: sclera anicteric, conjunctiva clear EARS, NOSE, THROAT: Moist mucous membranes NECK: No appreciated JVD while sitting upright LUNGS: Diminished breath sounds, No wheezes, and no crackles. No accessory muscle use HEART: Regular rate and rhythm, no murmur ABDOMEN: Soft, non tender, no distended, normal active bowel sounds, no guarding , no rebound MUSCULOSKELETAL: No CVA tenderness LOWER EXTREMITIES: warm, well-perfused, no peripheral edema NEUROLOGICAL: Normal mentation, grossly normal motor PSYCHIATRIC: Appropriate mood and affect SKIN: Warm and dry, no jaundice Laboratory Results - last 24 hr 04/19/17 04/19/17 06:00 06:00 WBC 22.9 H D RBC 4.35 Hgb 11.7 Hct 36.2 MCV 83.2 MCH 26.9 MCHC 32.4 RDW 14.4 Plt Count 320 MPV 8.2 Sodium 139 Potassium 4.7 D Chloride 107 Carbon Dioxide 24 Anion Gap 8 BUN 10 Creatinine 0.9 Creat Clearance w eGFR > 60 Random Glucose 139 H D Calcium 9.4 Phosphorus 2.6 D Magnesium 2.3 D Total Bilirubin 0.3 AST 12 L ALT 18 Alkaline Phosphatase 93 Total Protein 7.0 Albumin 3.2 L Active Medications Generic Name Dose Route Start Last Admin Trade Name Freq PRN Reason Stop Dose Admin Albuterol Sulfate 1 amp 04/18/17 16:05 04/18/17 22:50 Ventolin 0.5% - NEB 1 amp Q4H PRN Administration SHORT OF BREATH/WHEEZING Budesonide/Formoterol Fumarate 2 puff 04/18/17 22:00 04/18/17 21:21 Symbicort 160/4.5mcg - IH 2 puff BID CESAR Administration Guaifenesin 10 ml 04/18/17 16:05 04/18/17 23:04 Robitussin Dm - PO 10 ml Q6H PRN Administration COUGH Heparin Sodium (Porcine) 5,000 unit 04/18/17 18:00 04/19/17 02:07 Heparin - SQ Not Given Q8H-IV CESAR Lisinopril 10 mg 04/19/17 10:00 Prinivil PO DAILY CESAR Methylprednisolone Sodium Succinate 80 mg 04/18/17 16:03 04/19/17 02:03 Solu-Medrol - IVPB 80 mg Q6H-IV CESAR Administration Montelukast Sodium 10 mg 04/18/17 22:00 04/18/17 21:20 Singulair - PO 10 mg HS CESAR Administration Tiotropium [place] 1 puff 04/18/17 16:15 04/18/17 17:31 Spiriva - IH 1 puff DAILY CESAR Administration CBC, BMP 04/19/17 06:00 04/19/17 06:00 ASSESSMENT/PLAN: This is a 46 year old female with PMHx of asthma (hx of intubations), HTN, who presented to the ED with difficulty breathing, dyspnea on exertion since 03/29. #Acute asthma exacerbation - Solumedrol 40mg IVPB q6h, was increased yesterday to 80 mg , decreased again to day by pulm to 40 . -if continues to improve, can likely change steroids to PO in AM - Duo-nebs q4h - continue Singular - continue Symbicort - Guaifenesin for cough - F/u Influenza A&B screen negative - Monitor closely - F/u pulmonary consult - monitor peak flow # HTN - Continue Lisinopril 10 mg PO daily # F/E/N: - Sodium controlled diet - Monitor electrolytes # Prophylaxis: - OOB ambulating - Heparin 5,000u sq tid (patient with GARCIA so spends most of day in bed) # Dispo: - Once condition improves, requires continued inpatient care #CODE STATUS: FULL CODE Visit type - Emergency Visit Emergency Visit: Yes ED Registration Date: 04/18/17 Care time: The patient presented to the Emergency Department on the above date and was hospitalized for further evaluation of their emergent condition. - New Patient This patient is new to me today: Yes Date on this admission: 04/19/17 - Critical Care Critical Care patient: No - Discharge Referral Referred to [facility] No
[2017-04-19] MEDS ORDERED: PT OWN MED DRAWER 7, Y5N ONE (08:51)
[2017-04-19] MEDS: LISINOPRIL 10 MG TABLET (FP) PO SCH (09:37)
[2017-04-19] MEDS: BUDESONIDE/FORMETEROL FUMARATE 160/4.5 mcg INHALER IH SCH ×2 (09:42→21:24)
[2017-04-19] MEDS: TIOTROPIUM BROMIDE 18 MCG/INH (DEVICE W/ 5 CAPSULES) IH SCH (09:43)
--- NOTE | 2017-04-19 10:41 | PN ---
Progress Note (short form) - Note Progress Note: PULMONARY Breathing better today but has not ambulated much. No fevers or chills. + nonproductive cough and wheezing. Peak flow done at bedside 250, BPF 250. Last Vital Signs Temp Pulse Resp BP Pulse Ox 97.7 F 77 20 124/75 97 04/19/17 06:00 04/19/17 06:00 04/19/17 06:00 04/19/17 06:00 04/18/17 21:00 Gen: NAD at rest Heart: RRR Lung: distant breath sounds, no wheezes Abd: soft, nontender Ext: no edema CBC, BMP 04/19/17 06:00 04/19/17 06:00 Active Medications Albuterol Sulfate (Ventolin 0.5% -) 1 amp NEB Q4H PRN PRN Reason: SHORT OF BREATH/WHEEZING Last Admin: 04/18/17 22:50 Dose: 1 amp Budesonide/Formoterol Fumarate (Symbicort 160/4.5mcg -) 2 puff IH BID [facility] Last Admin: 04/19/17 09:42 Dose: 2 puff Guaifenesin (Robitussin Dm -) 10 ml PO Q6H PRN PRN Reason: COUGH Last Admin: 04/18/17 23:04 Dose: 10 ml Heparin Sodium (Porcine) (Heparin -) 5,000 unit SQ Q8H-IV [facility] Last Admin: 04/19/17 09:39 Dose: Not Given Lisinopril (Prinivil) 10 mg PO DAILY [facility] Last Admin: 04/19/17 09:37 Dose: 10 mg Methylprednisolone Sodium Succinate (Solu-Medrol -) 80 mg IVPB Q6H-IV [facility] Last Admin: 04/19/17 09:37 Dose: 80 mg Montelukast Sodium (Singulair -) 10 mg PO HS [facility] Last Admin: 04/18/17 21:20 Dose: 10 mg Tiotropium [place] (Spiriva -) 1 puff IH DAILY [facility] Last Admin: 04/19/17 09:43 Dose: 1 puff A/P Acute Asthma Exacerbation URI h/o CVA HTN - will decrease medrol to 40mg q8h - inhaled bronchodilators - monitor peak flow - singulair - ambulate hallways today - if continues to improve, can likely change steroids to PO in AM
--- NOTE | 2017-04-19 14:17 | EKG ---
Test Reason : Blood Pressure : / mmHG Vent. Rate : 068 BPM Atrial Rate : 068 BPM P-R Int : 138 ms QRS Dur : 082 ms QT Int : 390 ms P-R-T Axes : 046 033 -06 degrees QTc Int : 414 ms NORMAL SINUS RHYTHM NORMAL ECG WHEN COMPARED WITH ECG OF 17-AUG-2015 16:14, VENT. RATE HAS DECREASED BY 36 BPM NON-SPECIFIC CHANGE IN ST SEGMENT IN ANTERIOR LEADS QT HAS SHORTENED Confirmed by BART HERNANDEZ, RUFUS ([id number]) on 04/19/2017 2:16:49 PM Referred By: Confirmed By:RUFUS ARRIAGA MD
--- NOTE | 2017-04-19 17:13 | PN ---
Teaching Attending Note Name of Resident: Alex Cardenas ATTENDING PHYSICIAN STATEMENT I saw and evaluated the patient. I reviewed the resident's note and discussed the case with the resident. I agree with the resident's findings and plan as documented. SUBJECTIVE:breathing is improved. continues to have non productive cough. chest pressure is mostly resolved at this time. has been constant for the past few weeks. denies fever,chills, N/v/C/D states she was given a zpack and medrol dose pack a week ago with no relief. then was given steroid injection? by per PMD in the office instructed to come to ER if no improvement. OBJECTIVE: Last Vital Signs Temp Pulse Resp BP Pulse Ox 97.7 F 77 20 126/61 95 04/19/17 13:57 04/19/17 13:57 04/19/17 13:57 04/19/17 13:57 04/19/17 13:00 General NAD CV S1 S2 RRR no murmur/rub/gallop Lungs CTA B/L no wheezing/rales/rhonchi ASSESSMENT AND PLAN: 46 yo F with PMHx of asthma (hx of intubations), HTN, who presented to the ED with difficulty breathing, dyspnea on exertion since 03/29. 1. Acute asthma exacerbation- clinically improved. saturating 98% on RA. Peak Flow 250. states baseline is almost 400. steroids decreased to 40mg Q8H. started on singulair, spiriva and symbicort. nebs prn. supplemental oxygen as needed. pulmonary consulted. will need slow steroid taper. 2. HTN-controlled. Continue Lisinopril 3. DVT ppx- hep sq 4. plan for d/c in AM if clinically improves.
[2017-04-19] MEDS: MONTELUKAST NA 10 MG TABLET PO SCH (21:24)
[2017-04-19] MEDS ORDERED: MELATONIN 5 MG TABLETS PO ONE (23:28)
[2017-04-19] MEDS: guaiFENesin/D-METHORPHAN HB 10 ML UNIT-DOSE CUPS PO PRN (23:42)
[2017-04-20] MEDS: HEPARIN NA (PORCINE) 5,000 UNITS/ML 1ML VIAL SQ SCH ×3 (02:04→17:17)
[2017-04-20] MEDS: methylPREDNISolone NA SUCC 40 MG/1 ML VIAL IVPB SCH ×3 (02:04→09:50)
[2017-04-20 08:25] LABS: ARTERIAL BLD GAS O2 SATURATION 96.5 % (90-98.9); ARTERIAL BLOOD GAS BASE EXCESS 2.4 meq/l (-2-2); ARTERIAL BLOOD GAS HCO3 27.3 meq/L (22-26); ARTERIAL BLOOD GAS pH 7.39 (7.35-7.45)
[2017-04-20 08:28] LABS: ALLENS TEST POSITIVE
[2017-04-20 08:29] LABS: ART PUNCT SITE LEFT RADIAL; LPM/O2% 21%; PT. ON O2? NO; TYPE OF O2 R/A
[2017-04-20 08:30] LABS: MCH 26.8 pg (25.7-33.7); MCHC 32.2 g/dl (32.0-36.0); MEAN CELL VOLUME 83.2 fl (80-96); MEAN PLT VOLUME 7.6 fl (7.5-11.1); PLATELET COUNT 341 K/MM3 (134-434); RDW 14.6 % (11.6-15.6)
[2017-04-20] MEDS: BUDESONIDE/FORMETEROL FUMARATE 160/4.5 mcg INHALER IH SCH ×3 (08:34→21:28)
[2017-04-20] MEDS: TIOTROPIUM BROMIDE 18 MCG/INH (DEVICE W/ 5 CAPSULES) IH SCH ×2 (08:35→09:50)
[2017-04-20 08:47] LABS: WHITE BLOOD COUNT 30.5 K/mm3 (4.0-10.0)
[2017-04-20 08:56] LABS: ANION GAP 7 (8-16); CALCIUM 9.4 mg/dL (8.5-10.1); CO2 27 mmol/L (21-32); CREATININE 0.8 mg/dL (0.55-1.02); GLUCOSE,RANDOM 128 mg/dL (74-106)
[2017-04-20] MEDS: LISINOPRIL 10 MG TABLET (FP) PO SCH (09:42)
[2017-04-20] MEDS ORDERED: guaiFENesin/CODEINE 5 ML UNIT-DOSE CUPS PO PRN ×3 (12:52→20:52)
--- NOTE | 2017-04-20 12:52 | PN ---
Teaching Attending Note Name of Resident: Alex Cardenas ATTENDING PHYSICIAN STATEMENT I saw and evaluated the patient. I reviewed the resident's note and discussed the case with the resident. I agree with the resident's findings and plan as documented. SUBJECTIVE:c/o dyspnea. had "coughing attack" this mornign when someone passed her room with strong perfume. took long time to catch her breath. states she has non productive cough with no relief with robitussin. denies CP, fever, chills, N/V/C/D OBJECTIVE: Last Vital Signs Temp Pulse Resp BP Pulse Ox 97.8 F 63 18 111/64 99 04/20/17 05:37 04/20/17 05:37 04/20/17 05:37 04/20/17 05:37 04/19/17 21:00 General NAD Lungs CTA B/L no wheezing/rales/rhonchi ASSESSMENT AND PLAN: 46 yo F with PMHx of asthma (hx of intubations), HTN, who presented to the ED with difficulty breathing, dyspnea on exertion since 03/29. 1. Acute asthma exacerbation-bout of coughing triggered by perfume. concern for uptrending leukocytosis which can be due to steroids however very high from admission. peak flow 275. only modest improvement from yesterday. will decrease steroids to 40mg today and then monitor if improves. start robitussin with codeine. will not start abx at this time as CXR was clear on admission, afebrile and completed Zpack last week. however if does not clinically improve will consider repeating CXR and starting abx. started on singulair, spiriva and symbicort. nebs prn. supplemental oxygen as needed. pulmonary consulted. will need slow steroid taper. 2. HTN-controlled. Continue Lisinopril 3. DVT ppx- hep sq 4. plan for d/c in AM if clinically improves.
--- NOTE | 2017-04-20 13:33 | PN ---
Progress Note, Physician History of Present Illness: PULMONARY FEELING BETTER,LESS DYSPNEIC,LESS COUGH - Current Medication List Current Medications: Active Medications Albuterol Sulfate (Ventolin 0.5% -) 1 amp NEB Q4H PRN PRN Reason: SHORT OF BREATH/WHEEZING Last Admin: 04/18/17 22:50 Dose: 1 amp Budesonide/Formoterol Fumarate (Symbicort 160/4.5mcg -) 2 puff IH BID [facility] Last Admin: 04/20/17 09:51 Dose: Not Given Guaifenesin (Robitussin Dm -) 10 ml PO Q6H PRN PRN Reason: COUGH Last Admin: 04/19/17 23:42 Dose: 10 ml Guaifenesin/Codeine Phosphate (Robitussin Ac -) 5 ml PO TID PRN PRN Reason: COUGH Heparin Sodium (Porcine) (Heparin -) 5,000 unit SQ Q8H-IV [facility] Last Admin: 04/20/17 11:58 Dose: Not Given Lisinopril (Prinivil) 10 mg PO DAILY [facility] Last Admin: 04/20/17 09:42 Dose: 10 mg Montelukast Sodium (Singulair -) 10 mg PO HS [facility] Last Admin: 04/19/17 21:24 Dose: 10 mg Tiotropium [place] (Spiriva -) 1 puff IH DAILY [facility] Last Admin: 04/20/17 09:50 Dose: Not Given - Objective Vital Signs: Vital Signs Temperature 97.3 F L 04/20/17 10:00 Pulse Rate 73 04/20/17 10:00 Respiratory Rate 18 04/20/17 10:00 Blood Pressure 123/65 04/20/17 10:00 O2 Sat by Pulse Oximetry (%) 98 04/20/17 09:00 Constitutional: Yes: Well Nourished, Calm Eyes: Yes: WNL HENT: Yes: WNL Neck: Yes: WNL Cardiovascular: Yes: Regular Rate and Rhythm, S1, S2 Respiratory: Yes: CTA Bilaterally Gastrointestinal: Yes: Normal Bowel Sounds, Soft Extremities: Yes: WNL Edema: No Labs: CBC, BMP 04/20/17 08:15 04/20/17 08:15 Problem List - Problems (1) Asthma Code(s): J45.909 - UNSPECIFIED ASTHMA, UNCOMPLICATED (2) Bronchitis Code(s): J40 - BRONCHITIS, NOT SPECIFIED ACUTE OR CHRONIC (3) Acute dyspnea Code(s): R06.00 - DYSPNEA, UNSPECIFIED (4) Asthma exacerbation Code(s): J45.901 - UNSPECIFIED ASTHMA WITH (ACUTE) EXACERBATION (5) HTN (hypertension) Code(s): I10 - ESSENTIAL (PRIMARY) HYPERTENSION (6) History of CVA in adulthood Code(s): Z86.73 - PRSNL HX OF TIA (TIA), AND CEREB INFRC W/O RESID DEFICITS Assessment/Plan IMP CHRONIC PERSISTENT ASTHMA WITH ACUTE EXACERBATION IMPROVING URI H/O INTUBATION X2 HTN S/P CVA R/O OSAS PLAN PREDNISONE INHALED BRONCHODILATORS INHALED STEROIDS MONITOR PEAK FLOW ANTI-TUSSIVES SLEEP SCREEN DR PARDO Problem List - Problems (1) Asthma Code(s): J45.909 - UNSPECIFIED ASTHMA, UNCOMPLICATED (2) Bronchitis Code(s): J40 - BRONCHITIS, NOT SPECIFIED ACUTE OR CHRONIC (3) Acute dyspnea Code(s): R06.00 - DYSPNEA, UNSPECIFIED (4) Asthma exacerbation Code(s): J45.901 - UNSPECIFIED ASTHMA WITH (ACUTE) EXACERBATION (5) HTN (hypertension) Code(s): I10 - ESSENTIAL (PRIMARY) HYPERTENSION (6) History of CVA in adulthood Code(s): Z86.73 - PRSNL HX OF TIA (TIA), AND CEREB INFRC W/O RESID DEFICITS
[2017-04-20] MEDS: predniSONE 20 MG TABLET (UD) PO SCH (15:04)
--- NOTE | 2017-04-20 16:27 | PN ---
Physical Exam: SUBJECTIVE: Patient seen and examined OBJECTIVE: Vital Signs Period Temp Pulse Resp BP Sys/Shay Pulse Ox Last 24 Hr 97.3 F-98.5 F 63-85 18-20 107-132/60-69 95-99 GENERAL: The patient is awake, alert, and fully oriented, in no acute distress. HEAD: Normal with no signs of trauma. EYES: PERRL, extraocular movements intact, sclera anicteric, conjunctiva clear. No ptosis. ENT: Ears normal, nares patent, oropharynx clear without exudates, moist mucous membranes. NECK: Trachea midline, full range of motion, supple. LUNGS: Breath sounds equal, clear to auscultation bilaterally, no wheezes, no crackles, no accessory muscle use. HEART: Regular rate and rhythm, S1, S2 without murmur, rub or gallop. ABDOMEN: Soft, nontender, nondistended, normoactive bowel sounds, no guarding, no rebound, no hepatosplenomegaly, no masses. EXTREMITIES: 2+ pulses, warm, well-perfused, no edema. NEUROLOGICAL: Cranial nerves II through XII grossly intact. Normal speech, gait not observed. PSYCH: Normal mood, normal affect. SKIN: Warm, dry, normal turgor, no rashes or lesions noted Laboratory Results - last 24 hr 04/20/17 04/20/17 04/20/17 08:15 08:15 08:20 WBC 30.5 H* D RBC 4.32 Hgb 11.6 Hct 35.9 MCV 83.2 MCH 26.8 MCHC 32.2 RDW 14.6 Plt Count 341 MPV 7.6 Puncture Site Left radial ABG pH 7.39 ABG pCO2 at Pt Temp 46.1 H ABG pO2 at Pt Temp 81.0 ABG HCO3 27.3 H ABG O2 Sat (Measured) 96.5 ABG O2 Content 15.4 ABG Base Excess 2.4 H Luis Test Positive O2 Delivery Device R/a Oxygen Flow Rate 21% PEEP 0.0 Sodium 140 Potassium 4.7 Chloride 106 Carbon Dioxide 27 Anion Gap 7 L BUN 18 D Creatinine 0.8 Random Glucose 128 H Calcium 9.4 Active Medications Generic Name Dose Route Start Last Admin Trade Name Freq PRN Reason Stop Dose Admin Albuterol Sulfate 1 amp 04/18/17 16:05 04/18/17 22:50 Ventolin 0.5% - NEB 1 amp Q4H PRN Administration SHORT OF BREATH/WHEEZING Budesonide/Formoterol Fumarate 2 puff 04/18/17 22:00 04/20/17 09:51 Symbicort 160/4.5mcg - IH Not Given BID CESAR Guaifenesin/Codeine Phosphate 5 ml 04/20/17 12:52 Robitussin Ac - PO TID PRN COUGH Heparin Sodium (Porcine) 5,000 unit 04/18/17 18:00 04/20/17 11:58 Heparin - SQ Not Given Q8H-IV CESAR Lisinopril 10 mg 04/19/17 10:00 04/20/17 09:42 Prinivil PO 10 mg DAILY CESAR Administration Montelukast Sodium 10 mg 04/18/17 22:00 04/19/17 21:24 Singulair - PO 10 mg HS CESAR Administration Prednisone 50 mg 04/20/17 13:45 04/20/17 15:04 Deltasone - PO 50 mg DAILY CESAR Administration Tiotropium [place] 1 puff 04/18/17 16:15 04/20/17 09:50 Spiriva - IH Not Given DAILY CESAR CBC, BMP 04/20/17 08:15 04/20/17 08:15 ASSESSMENT/PLAN: This is a 46 year old female with PMHx of asthma (hx of intubations), HTN, who presented to the ED with difficulty breathing, dyspnea on exertion since 03/29. was diagnosed with acute asthma exacerbation was treated with solumedrol 40mg IVPB q6h, was increased yesterday to 80 mg , decreased again to day by pulm to 40 . changed to steroids to PO after improved. She was given Duo-nebs q4h, Singular , Symbicort,Guaifenesin for cough. Influenza A&B screen negative ,pulmonary was consulted. For HTN Continue with Lisinopril 10 mg PO daily Visit type - Emergency Visit Emergency Visit: Yes ED Registration Date: 04/18/17 Care time: The patient presented to the Emergency Department on the above date and was hospitalized for further evaluation of their emergent condition. - New Patient This patient is new to me today: No - Critical Care Critical Care patient: No - Discharge Referral Referred to [facility] No
[2017-04-20] MEDS: MONTELUKAST NA 10 MG TABLET PO SCH (21:28)
[2017-04-21] MEDS: HEPARIN NA (PORCINE) 5,000 UNITS/ML 1ML VIAL SQ SCH ×2 (02:15→09:45)
[2017-04-21 07:33] LABS: MCH 26.9 pg (25.7-33.7); MCHC 32.1 g/dl (32.0-36.0); MEAN CELL VOLUME 83.9 fl (80-96); MEAN PLT VOLUME 7.9 fl (7.5-11.1); PLATELET COUNT 323 K/MM3 (134-434); RDW 14.6 % (11.6-15.6); WHITE BLOOD COUNT 24.6 K/mm3 (4.0-10.0)
[2017-04-21] MEDS ORDERED: PT OWN MED DRAWER 7, Y5N ONE (09:12)
[2017-04-21 09:39] LABS: PLATELET ESTIMATE ADEQUATE (NORMAL); TOTAL CELLS COUNTED 100
[2017-04-21 09:42] LABS: HYPOCHROMIA 2+
[2017-04-21 09:45] VITALS: BP 129/64; PULSE 91; TEMP 98.7
[2017-04-21] MEDS: LISINOPRIL 10 MG TABLET (FP) PO SCH (09:45)
[2017-04-21] MEDS: predniSONE 20 MG TABLET (UD) PO SCH (09:45)
[2017-04-21] MEDS: TIOTROPIUM BROMIDE 18 MCG/INH (DEVICE W/ 5 CAPSULES) IH SCH (09:47)
[2017-04-21] MEDS: BUDESONIDE/FORMETEROL FUMARATE 160/4.5 mcg INHALER IH SCH (09:47)
--- NOTE | 2017-04-21 10:23 | DS ---
Physical Exam: SUBJECTIVE: Patient seen and examined. asymptomatic. states breathing well on RA. no repeated coughing attacks. ambulating well. denies CP, SOB, fever, chills , cough OBJECTIVE: Vital Signs Period Temp Pulse Resp BP Sys/Shay Pulse Ox Last 24 Hr 97.6 F-98.7 F 56-91 16-18 106-129/52-74 99-100 PHYSICAL EXAM GENERAL: The patient is awake, alert, and fully oriented, in no acute distress. HEAD: Normal with no signs of trauma. EYES: PERRL, extraocular movements intact, sclera anicteric, conjunctiva clear. ENT: Ears normal, nares patent, oropharynx clear without exudates, moist mucous membranes. NECK: Trachea midline, full range of motion, supple. LUNGS: Breath sounds equal, clear to auscultation bilaterally, no wheezes, no crackles, no accessory muscle use. HEART: Regular rate and rhythm, S1, S2 without murmur, rub or gallop. ABDOMEN: Soft, nontender, nondistended, normoactive bowel sounds, no guarding, no rebound, no hepatosplenomegaly, no masses. EXTREMITIES: 2+ pulses, warm, well-perfused, no edema. NEUROLOGICAL: Cranial nerves II through XII grossly intact. Normal speech, gait not observed. PSYCH: Normal mood, normal affect. SKIN: Warm, dry, normal turgor, no rashes or lesions noted. LABS Laboratory Results - last 24 hr 04/21/17 06:00 WBC 24.6 H RBC 4.29 Hgb 11.5 Hct 36.0 MCV 83.9 MCH 26.9 MCHC 32.1 RDW 14.6 Plt Count 323 MPV 7.9 Total Counted 100 Neutrophils % No Result Required. Neutrophils % (Manual) 74 Lymphocytes % No Result Required. Lymphocytes % (Manual) 22 Monocytes % (Manual) 4 Hypochromia 2+ Platelet Estimate Adequate HOSPITAL COURSE: Date of Admission:04/18/17 Date of Discharge: 04/21/17 ADmitting diagnosis: Acute asthma exacerbation Pre hospital course 46 year old female with PMHx of asthma (hx of intubations), HLD, who presented to the ED with difficulty breathing, dyspnea on exertion since 03/29. The patient reports she saw her pcp twice since 03/29 and was placed on steroid tapers and a Zpak which she completed about 1 week ago. She reports not feeling better with those medications and also having a productive cough. She reports having been intubated in the past 2/2 asthma. The patient denies fever, chills, chest pain, nausea, vomiting, dizziness, headache, lower extremity edema. 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 started on IV solumedrol, spiriva and symbicort and singulair. Supplemental oxygen. steroids were tapered and pt improved clinically. peak flow at discharge 275. counseled on how to use inhalers and medication compliance. d/c home on prednisone taper Minutes to complete discharge: 40 Discharge Summary Reason For Visit: ASTHMA WITH EXACERBATION Current Active Problems Asthma (Acute) Bronchitis (Acute) HTN (hypertension) (Acute) History of CVA in adulthood (Acute) Sepsis (Acute) Condition: Improved - Instructions Diet, Activity, Other Instructions: You were admitted to the hospital due to an exacerbation of your asthma. You were treated with IV steroids and improved. You have been started on new inhalers, Spiriva and Symbicort. Use these inhalers daily regardless if you feel short of breath. Use the albuterol inhaler (rescue inhaler) if you have a sudden feeling of inability to breath or shortness of breath You have also been started on a tablet called singulair, take this every day. Take the steroid taper until completed. Even if your symptoms are gone Prednisone 4 tablets for sun and mon 3 tablets for and wed 2 tables for th and fri 1 tablet for sat and sun Follow up with your primary care doctor next week. BEFORE finishing your steroid taper to see how you are feeling Follow up with pulmonary in 2 weeks. If you feel more short of breath as you are tapering off the steroids, give him a call as he may advise you to come in sooner Return to the ER if you develop chest pain or shortness of breath Referrals: Sy Benjamin MD [Staff Physician] - Tyler Flanagan MD [Primary Care Provider] - Disposition: HOME - Home Medications Comprehensive Discharge Medication List: Ambulatory Orders Lisinopril [Prinivil] 10 mg PO DAILY 09/23/15 Albuterol Sulfate Inhaler - [Ventolin HFA Inhaler -] 1 - 2 inh PO Q4H PRN Budesonide/Formeterol Fumarate [SYMBICORT 160/4.5mcg -] 2 puff IH BID #1 inhaler 04/21/17 Montelukast Na [Singulair -] 10 mg PO HS #30 tablet 04/21/17 Prednisone 40 mg PO DAILY #20 tablet 04/21/17 Tiotropium [place] [Spiriva] 1 puff IH DAILY #1 inh 04/21/17 This patient is new to me today: No Emergency Visit: Yes ED Registration Date: 04/18/17 Care time: The patient presented to the Emergency Department on the above date and was hospitalized for further evaluation of their emergent condition. Critical Care patient: No - Discharge Referral Referred to [facility] Med [facility] No
== END 2017-04-21 14:08 | disposition home or self-care (01) | DRG 141 ==
LOC: JER 11:08 → OBSVTOIN 14:03 → JERBED 14:03 → J7W 15:41
PROVIDERS: ADMIT Internal Medicine; ATTEND Internal Medicine
DX: J45.51 Severe persistent asthma with (acute) exacerbation (principal); J06.9 Acute upper respiratory infection, unspecified; I10 Essential (primary) hypertension; J44.9 Chronic obstructive pulmonary disease, unspecified; I69.351 Hemiplegia and hemiparesis following cerebral infarction affecting right dominant side; Z86.73 Personal history of transient ischemic attack (TIA), and cerebral infarction without residual deficits
CPT/HCPCS: 36415; 36600; 71010-TC; 80048; 80053; 82803; 83735; 84100; 84484; 84703; 85025; 85027; 85379; 87804; 93005; 93010; 94150; 94640; 99285-25

== ENCOUNTER 2018-09-14 21:44 | Emergency (ER) | payer OTHER ==
[2018-09-14 21:48] VITALS: BP 136/73; PULSE 72; TEMP 98; BMI 35.7
--- NOTE | 2018-09-14 22:05 | PDOC ---
History of Present Illness - General Chief Complaint: Allergic Reaction Stated Complaint: ALLERGIC REACTION Time Seen by Provider: 09/14/18 22:03 - History of Present Illness Initial Comments: 09/14/18 22:05 48 yo F with h/o HLD, HTN, asthma (requiring intubation), CVA who p/w rash. Patient reports being in ED with her daughter, who is being treated as a patient , when she developed sudden onset facial and neck itching, and rash 10 minutes prior to presentation. Patient believes she hit a fly/insect with the back of her hand while in ED room, and it triggered an allergic reaction. Reports similar history in past. Denies new contact exposures/allergens, topical emoilents, soaps, detergents, clothing, bedding, outdoor exposure. Denies change in diet. Patient denies LUONG, drooling, dysphagia, stridor,vision change, palpitations, cough, wheezing, orthopena, PND, leg swelling/pain, N/V, F,C, CP, SOB, urinary complaints, hematuria, BPR, abdominal pain, diarrhea, constipation, lightheadedness, weakness, sensory changes. PMHx: as noted above ROS: as noted Allergies: Morphine, Darvocet Past History - Past Medical History Allergies/Adverse Reactions: Allergies Allergy/AdvReac Type Severity Reaction Status Date / Time morphine Allergy Itching Verified 09/14/18 21:48 propoxyphene napsylate Allergy Itching Verified 09/14/18 21:48 [From Darvocet-N 100] Home Medications: Ambulatory Orders Lisinopril [Prinivil] 10 mg PO DAILY 09/23/15 Albuterol Sulfate Inhaler - [Ventolin HFA Inhaler -] 1 - 2 inh PO Q4H PRN Budesonide/Formeterol Fumarate [SYMBICORT 160/4.5mcg -] 2 puff IH BID #1 inhaler 04/21/17 Montelukast Na [Singulair -] 10 mg PO HS #30 tablet 04/21/17 Prednisone 40 mg PO DAILY #20 tablet 04/21/17 Tiotropium [place] [Spiriva] 1 puff IH DAILY #1 inh 04/21/17 Prednisone [Prednisone 50 MG TABLETS] 50 mg PO DAILY #5 tablet MDD 1 tab Prednisone [Prednisone 50 MG TABLETS] 50 mg PO DAILY #5 tablet MDD 1 tab Ranitidine [Zantac -] 150 mg PO DAILY #5 tablet MDD 1 tab 09/14/18 Ranitidine [Zantac -] 150 mg PO DAILY #5 tablet MDD 1 tab 09/14/18 Anemia: No Asthma: Yes Cancer: No Cardiac Disorders: No CVA: Yes (RT ARM WEAKNESS,TIA) COPD: Yes CHF: No Dementia: No Diabetes: No GI Disorders: No Disorders: No HTN: Yes Hypercholesterolemia: No Liver Disease: No Seizures: No Thyroid Disease: No - Surgical History Abdominal Surgery: Yes Appendectomy: Yes Cardiac Surgery: No Cholecystectomy: Yes Lung Surgery: No Neurologic Surgery: No Orthopedic Surgery: No - Immunization History Immunization Up to Date: Yes - Suicide/Smoking/Psychosocial Hx Smoking Status: No Smoking History: Never smoked Have you smoked in the past 12 months: No Number of Cigarettes Smoked Daily: 0 Information on smoking cessation initiated: No Hx Alcohol Use: No Drug/Substance Use Hx: No Substance Use Type: None Hx Substance Use Treatment: No Review of Systems - Review of Systems Comments:: 09/14/18 22:18 GENERAL/CONSTITUTIONAL: No fever or chills. No weakness. HEAD, EYES, EARS, NOSE AND THROAT: No change in vision. No ear pain or discharge. No sore throat. CARDIOVASCULAR: No chest pain or shortness of breath RESPIRATORY: No cough, wheezing, or hemoptysis. GASTROINTESTINAL: No nausea, vomiting, diarrhea or constipation. GENITOURINARY: No dysuria, frequency, or change in urination. MUSCULOSKELETAL: No joint or muscle swelling or pain. No neck or back pain. SKIN: +rash NEUROLOGIC: No headache, vertigo, loss of consciousness, or change in strength/ sensation. ENDOCRINE: No increased thirst. No abnormal weight change HEMATOLOGIC/LYMPHATIC: No anemia, easy bleeding, or history of blood clots. ALLERGIC/IMMUNOLOGIC: No hives or skin allergy. *Physical Exam - Vital Signs Last Vital Signs Temp Pulse Resp BP Pulse Ox 98.0 F 72 16 136/73 100 09/14/18 21:46 09/14/18 21:46 09/14/18 21:46 09/14/18 21:46 09/14/18 21:46 - Physical Exam Comments: 09/14/18 22:18 GENERAL: Awake, alert, and fully oriented, in no acute distress HEAD: No signs of trauma, normocephalic, atraumatic EYES: PERRLA, EOMI, sclera anicteric, conjunctiva clear ENT: Auricles normal inspection, hearing grossly normal, nares patent, oropharynx clear without exudates. Moist mucosa NECK: Normal ROM, supple, no lymphadenopathy, JVD, or masses LUNGS: No distress, speaks full sentences, clear to auscultation bilaterally HEART: Regular rate and rhythm, normal S1 and S2, no murmurs, rubs or gallops, peripheral pulses normal and equal bilaterally. ABDOMEN: Soft, nontender, normoactive bowel sounds. No guarding, no rebound. No masses EXTREMITIES : Normal inspection, Normal range of motion, no edema. No clubbing or cyanosis. NEUROLOGICAL: Cranial nerves II through XII grossly intact. Normal speech, normal gait, no focal sensorimotor deficits SKIN: + Urticarial, blanching lesions present on face, neck, back sparing eyes, with absent mucosal involvement. Warm, Dry, normal turgor. Absent warmth, erythema. 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 Patient states that she struck insect and developed sudden onset symptoms. Vitals wnl, AF, A&Ox3. Physical exam notable for + Urticarial, blanching lesions present on face, neck, back sparing eyes, with absent mucosal involvement. Likely acute hypersensitivity or allergic reaction. No evidence of anaphalyxis, respiratory distress/compromise. No mucosal edema, uvula deviation, stirodr, wheezing, abdominal ttp. Denies drooling, dysphagia, stridor, SOB, vision change, abdominal upset/pain, diarrhea , N/V. Provide symptom control and reassess. ED Course: Diphehydramine 25 mg, Ranitidine, Prednsione. 09/14/18 22:30 Ranitidine, Prednisone sent to pharmacy 09/15/18 00:38 Patient symptoms improved. Stable for d/c with return precautions. *DC/Admit/Observation/Transfer Diagnosis at time of Disposition: Urticarial rash - Discharge Dispostion Condition at time of disposition: Stable Decision to Admit order: No - Prescriptions Prescriptions: Prednisone [Prednisone 50 MG TABLETS] 50 mg PO DAILY #5 tablet MDD 1 tab Prednisone [Prednisone 50 MG TABLETS] 50 mg PO DAILY #5 tablet MDD 1 tab Ranitidine [Zantac -] 150 mg PO DAILY #5 tablet MDD 1 tab Ranitidine [Zantac -] 150 mg PO DAILY #5 tablet MDD 1 tab - Referrals - Patient Instructions Printed Discharge Instructions: DI for General Allergic Reactions, DI for Adverse Drug Reaction -- Allergic Additional Instructions: Please return to the emergency department with any new or worsening symptoms or concerns. Please follow up with your primary care physician within 72 hours. Please take Prednisone, Ranitidine daily x 5 days. - Post Discharge Activity - Attestations Physician Attestion: 09/14/18 22:24 I attest to the information provided in this note.
[2018-09-14] MEDS ORDERED: predniSONE 20 MG TABLET (UD) PO ONE (22:12)
[2018-09-14] MEDS ORDERED: RANITIDINE HCL 150 MG TABLET (FP) PO ONE (22:12)
[2018-09-14] MEDS ORDERED: diphenhydrAMINE HCL 12.5 MG/5 ML UNIT-DOSE CUPS PO ONE (22:12)
--- NOTE | 2018-09-14 22:20 | PDOC ---
Attending Attestation - Resident Resident Name: Tim Rudd - ED Attending Attestation I have performed the following: I have examined & evaluated the patient, The case was reviewed & discussed with the resident, I agree w/resident's findings & plan - HPI HPI: 09/14/18 22:28 Pt was here with her daughter and she developed urticaria on the right neck and shoulder area; she believes that it all started after she swatted an insect in the ER. She will be treated with antiallergy meds and she will have more sent to her pharmacy. We do not know what her allergic rxn is to. - Physicial Exam PE: 09/14/18 22:28 Agree with resident exam - Medical Decision Making 09/15/18 00:38 Pt feels great and she is ready to go home.
[2018-09-14] MEDS ORDERED: diphenhydrAMINE HCL 12.5 MG/5 ML BULK BOTTLE ONE (22:37)
[2018-09-14] MEDS ORDERED: predniSONE 20 MG TABLET (UD) ONE (22:37)
[2018-09-14] MEDS ORDERED: RANITIDINE HCL 150 MG TABLET (FP) ONE (22:37)
== END 2018-09-15 00:40 | disposition home or self-care (01) ==
LOC: JER 21:44
DX: T78.49XA Other allergy, initial encounter (principal); L50.0 Allergic urticaria; X58.XXXA Exposure to other specified factors, initial encounter; I10 Essential (primary) hypertension; E78.5 Hyperlipidemia, unspecified; J45.909 Unspecified asthma, uncomplicated; I69.831 Monoplegia of upper limb following other cerebrovascular disease affecting right dominant side
CPT/HCPCS: 99282-25

== ENCOUNTER 2019-06-04 21:53 | Observation (INO) | payer OTHER ==
--- NOTE | 2019-06-04 22:32 | PDOC ---
History of Present Illness - General Chief Complaint: Weakness Stated Complaint: RT SIDED WEAKNESS Time Seen by Provider: 06/04/19 22:32 Past History - Past Medical History Allergies/Adverse Reactions: Allergies Allergy/AdvReac Type Severity Reaction Status Date / Time morphine Allergy Itching Verified 06/04/19 21:57 propoxyphene napsylate Allergy Itching Verified 06/04/19 21:57 [From [facility]-N 100] Home Medications: Ambulatory Orders Lisinopril [Prinivil] 10 mg PO DAILY 09/23/15 Albuterol Sulfate Inhaler - [Ventolin HFA Inhaler -] 1 - 2 inh PO Q4H PRN Budesonide/Formeterol Fumarate [SYMBICORT 160/4.5mcg -] 2 puff IH BID #1 inhaler 04/21/17 Montelukast Na [Singulair -] 10 mg PO HS #30 tablet 04/21/17 Prednisone 40 mg PO DAILY #20 tablet 04/21/17 Tiotropium [place] [Spiriva] 1 puff IH DAILY #1 inh 04/21/17 Prednisone [Prednisone 50 MG TABLETS] 50 mg PO DAILY #5 tablet MDD 1 tab Prednisone [Prednisone 50 MG TABLETS] 50 mg PO DAILY #5 tablet MDD 1 tab Ranitidine [Zantac -] 150 mg PO DAILY #5 tablet MDD 1 tab 09/14/18 Ranitidine [Zantac -] 150 mg PO DAILY #5 tablet MDD 1 tab 09/14/18 Anemia: No Asthma: Yes Cancer: No Cardiac Disorders: No CVA: Yes (RT ARM WEAKNESS,TIA) COPD: Yes CHF: No Dementia: No Diabetes: No GI Disorders: No Disorders: No HTN: Yes Hypercholesterolemia: No Liver Disease: No Seizures: No Thyroid Disease: No - Surgical History Abdominal Surgery: Yes Appendectomy: Yes Cardiac Surgery: No Cholecystectomy: Yes Lung Surgery: No Neurologic Surgery: No Orthopedic Surgery: No - Immunization History Immunization Up to Date: Yes - Psycho Social/Smoking Cessation Hx Smoking Status: No Smoking History: Never smoked Have you smoked in the past 12 months: No Number of Cigarettes Smoked Daily: 0 Hx Alcohol Use: No Drug/Substance Use Hx: No Substance Use Type: None Hx Substance Use Treatment: No *Physical Exam - Vital Signs Last Vital Signs Temp Pulse Resp BP Pulse Ox 98.0 F 72 18 180/91 H 99 06/04/19 21:54 06/04/19 21:54 06/04/19 21:54 06/04/19 21:54 06/04/19 21:54 Discharge - Follow up/Referral Referrals: Tyler Flanagan MD [Primary Care Provider] - - Patient Discharge Instructions - Post Discharge Activity
--- NOTE | 2019-06-04 23:20 | PDOC ---
History of Present Illness - General Chief Complaint: Weakness Stated Complaint: RT SIDED WEAKNESS Time Seen by Provider: 06/04/19 22:32 History Source: Patient Exam Limitations: No Limitations - History of Present Illness Initial Comments: Pt is a 48 yo F, with PMH of HTN, asthma (prior intubation), TIA (2009, previously on Coumadin), and RLE DVT removal, varicose vein repair, who is presenting with R hand numbness, tingling, and weakness x4 days. Pt states she recently had varicose vein repair done by Dr. Johnson 05/15, and has had intermittent burning sensation on her inner leg as well for the same time period. Pt noted her R arm is becoming weaker, and she has now noted increasing contracture of her hand over the past few days. 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 Pt has had similar symptoms in the past, with negative MRI work-up (2012), but has not followed with neurology and was stopped on statin and AC medications "years ago ". Pt denies any fevers/chills, headache, vision changes, syncope, chest pain, palpitations, SOB, nausea/vomiting, abdominal pain, urinary symptoms, diarrhea/ constipation, or leg swelling. Allergies: NKDA PCP: Masha Social: Pt denies any cigarette, alcohol, or drug use. Pt denies any recent travel or sick contacts. Surgical: removal of DVT in RLE, varicose vein and "leaky valve" repair (2018) Family: no relevant history. 06/05/19 02:51 06/05/19 03:30 Past History - Travel Traveled outside of the country in the last 30 days: No Close contact w/someone who was outside of country & ill: No - Past Medical History Allergies/Adverse Reactions: Allergies Allergy/AdvReac Type Severity Reaction Status Date / Time morphine Allergy Itching Verified 06/04/19 21:57 propoxyphene napsylate Allergy Itching Verified 06/04/19 21:57 [From Darvocet-N 100] Home Medications: Ambulatory Orders Lisinopril [Prinivil] 10 mg PO DAILY 09/23/15 Anemia: No Asthma: Yes Cancer: No Cardiac Disorders: No CVA: Yes (RT ARM WEAKNESS,TIA) COPD: Yes CHF: No Dementia: No Diabetes: No GI Disorders: No Disorders: No HTN: Yes Hypercholesterolemia: No Liver Disease: No Seizures: No Thyroid Disease: No - Surgical History Abdominal Surgery: Yes Appendectomy: Yes Cardiac Surgery: No Cholecystectomy: Yes Lung Surgery: No Neurologic Surgery: No Orthopedic Surgery: No - Immunization History Immunization Up to Date: Yes - Psycho Social/Smoking Cessation Hx Smoking Status: No Smoking History: Never smoked Have you smoked in the past 12 months: No Number of Cigarettes Smoked Daily: 0 Hx Alcohol Use: No Drug/Substance Use Hx: No Substance Use Type: None Hx Substance Use Treatment: No Neuro Specific PMHX - Complaint Specific PMHX Glaucoma: No Herniated Disk: No Laminectomy: No Migraine: No Multiple Sclerosis: No Neuropathy: No TIA: Yes Review of Systems - Review of Systems Able to Perform ROS?: Yes Is the patient limited Latvian proficient: No Constitutional: Yes: Weakness, Weight Stable. No: Chills, Diaphoresis, Fever, Loss of Appetite, Malaise HEENTM: No: Blurred Vision, Recent change in vision, Nose Congestion, Throat Pain, Throat Swelling, Difficulty Swallowing Respiratory: No: Cough, Orthopnea, Shortness of Breath Cardiac (ROS): No: Chest Pain, Edema, Irregular Heart Rate, Lightheadedness, Palpitations, Syncope, Chest Tightness ABD/GI: No: Constipated, Diarrhea, Nausea, Poor Appetite, Poor Fluid Intake, Vomiting : No: Burning, Dysuria, Frequency, Flank Pain, Hematuria, Pain, Urgency Musculoskeletal: Yes: See HPI, Muscle Weakness. No: Back Pain, Joint Pain, Joint Swelling, Muscle Pain, Neck Pain, Joint Stiffness Integumentary: No: Rash Neurological: Yes: See HPI, Numbness, Paresthesia, Tingling, Weakness. No: Headache, Pre-Existing Deficit, Unsteady Gait, Ataxia, Dizziness Psychiatric: No: Sleep Pattern Change, Change in Appetite Endocrine: No: Increased Urine, Change in Weight Hematologic/Lymphatic: Yes: Blood Clots. No: Anemia, Easy Bleeding, Easy Bruising All Other Systems: Reviewed and Negative *Physical Exam - Vital Signs Last Vital Signs Temp Pulse Resp BP Pulse Ox 98.0 F 72 18 180/91 H 99 06/04/19 21:54 06/04/19 21:54 06/04/19 21:54 06/04/19 21:54 06/04/19 21:54 - Physical Exam Comments: Initially HTN (resolved to 140 systolic on my exam), pt afebrile. Pt in NAD, but holding R arm against her body. Obese body habitus. Pt alert and oriented x3. vertical borer generally intact, cerebellar exam WNL. +R arm drift with contracture developing of the R hand. Decreased sensation over radial and ulnar aspects of the R hand and wrist, intact in axillary, musculocutaneous, and median distributions. No other focal deficits noted. RLE with good strength. No midline spinal tenderness, step-offs, or crepitus. Head normocephalic, atraumatic. Eyes PERRLA, EOMI. Oropharynx without erythema or exudates, no LAD b/l. No nasal congestion. Hearing intact. Clear heart sounds, S1/S2, no JVD, b/l pedal edema, or heart murmur. Clear lung sounds, no respiratory distress, wheezes, crackles, or accessory muscle use. No abdominal or CVA tenderness to palpation, no rebound, no guarding. Abdomen soft, non-distended, and with normoactive bowel sounds. +edema over R hand and wrist, edema of R leg (pt states chronic after DVTs); areas of varicose vein on R thigh. Skin without jaundice or rash. 06/05/19 03:38 ED Treatment Course - LABORATORY CBC & Chemistry Diagram: 06/05/19 02:07 06/05/19 02:07 - RADIOLOGY Radiology Studies Ordered: Category Date Time Status HEAD CT (STROKE) [CT] Stat CT Scan 06/04/19 23:16 Ordered DUPLEX VASCUL US-1 ARM [US] Stat Ultrasound 06/04/19 23:18 Ordered DUPLEX VASCUL US-1 LEG [US] Stat Ultrasound 06/04/19 23:18 Ordered Medical Decision Making - Medical Decision Making Pt was seen at bedside, also will be seen by attending Dr. Ayala. Pt presenting with R arm weakness, developing contracture of the R hand. Will evaluate for CVA vs demyelinating lesions, stroke risk (HLD, coags), electrolyte imbalances. Pt out of timeline for TPA if stroke has occurred. NIHSS is 1, due to drift of R arm. Will evaluate with non-contrast CT head, DVT studies of R arm and R leg Will continue to reassess pt and monitor for symptomatic improvement. ECG: NSR, intervals WNL (HR 65, KS 144, QRS 72, QTc 426). TWI in III, with no significant ST segment changes. No significant changes from prior ECG (04/2017). 06/05/19 03:40 CT head without acute pathology. DVT studies showed superficial thrombophlebitis of R saphenous vein in RLE; RUE negative for DVT Pt was difficult IV stick, labs were obtained after imaging. CBC and CMP, Mg WNL Trop <.02 Lipid profile with borderline high LDL and triglycerides -- can be managed with PCP/neurology Pt to be admitted to hospitalist team. Pt requires further work-up with MRI and potential imaging studies of R arm, to exclude demyelinating disease, CVA; pt developing contracture of R hand which could risk quality of life and usage of hand. Extremities neurovascularly intact. Paged hospitalist team for admission. 06/05/19 03:48 Pt admitted to hospitalist team (Dr. Davis). Pt stable for med/surg with frequent neurological checks. HTN improved without medication. 06/05/19 04:06 Discharge - Discharge Information Problems reviewed: Yes Clinical Impression/Diagnosis: Right hand weakness, History of TIA (transient ischemic attack), Thrombophlebitis Condition: Stable - Admission Yes - Follow up/Referral - Patient Discharge Instructions - Post Discharge Activity NIH Stroke Scale - Last Known Well Date/Time & Onset Date Last Known Well: 06/01/19 Time Last Known Well: 16:00 - Initial Evaluation Level of consciousness: Alert Ask patient the month and their age: Answers both correctly Ask patient to open & close eyes; make fist and let go: Obeys both correctly Best gaze (horizontal eye movement): Normal Visual field testing: No visual field loss Facial paresis (Show teeth/raise eyebrows/close eyes tight): Normal symmetrical movement Motor Function: Left Arm: Normal Motor Function: Right Arm: Drift Motor Function: Left Leg: Normal (extends leg 30 degrees for 5 seconds without drift) Motor Function: Right Leg: Normal (extends leg 30 degrees for 5 seconds without drift) Limb Ataxia: No ataxia Sensory(Use pinprick test arms,legs,trunk,face/side to side): Normal Best language (Describe picture, name items, read sentences): No Aphasia Dysarthria (read several words): Normal articulation Extinction and Inattention: No abnormality - Total Score NIH Stroke Scale Score: 1
--- NOTE | 2019-06-05 00:30 | PDOC ---
Attending Attestation - Resident Resident Name: Renu Palacio - ED Attending Attestation I have performed the following: I have examined & evaluated the patient, The case was reviewed & discussed with the resident, I agree w/resident's findings & plan - HPI HPI: 06/05/19 00:30 see resident hpi - Physicial Exam PE: 06/05/19 00:30 agree with resident exam - Medical Decision Making 06/05/19 00:30 48-year-old female with cramping weakness and clumsiness to the right upper extremity as well as tingling to the right lower extremity with history of DVT Plan for ultrasounds of the right upper and right lower extremity CT scan for history possibly consistent with CVA Patient is well beyond the window for acute stroke intervention as symptoms have been present for 4 days We will admit for further evaluation pending these results 06/05/19 00:45
[2019-06-05 01:19] LABS: HYALINE CASTS 1 /lpf (0-8); URINE APPEARANCE CLEAR; URINE BACTERIA 16.1 /hpf (NEGATIVE); URINE BILIRUBIN NEGATIVE (NEGATIVE); URINE COLOR YELLOW; URINE GLUCOSE (UA) NEGATIVE (NEGATIVE); URINE KETONE NEGATIVE (NEGATIVE); URINE LEUK ESTERASE NEGATIVE (NEGATIVE); URINE NITRITE NEGATIVE (NEGATIVE); URINE PROTEIN NEGATIVE (NEGATIVE); URINE RBC 10 /hpf (0-4); URINE WBC 1 /hpf (0-5)
[2019-06-05 02:18] LABS: BASO % 0.7 % (0-2.0); EOS % 0.7 % (0-4.5); HEMATOCRIT 37.1 % (32.4-45.2); HEMOGLOBIN 11.9 GM/dL (10.7-15.3); LYMPH % 36.1 % (8-40); MCH 27.1 pg (25.7-33.7); MCHC 32.1 g/dl (32.0-36.0); MEAN CELL VOLUME 84.5 fl (80-96); MEAN PLT VOLUME 7.8 fl (7.5-11.1); NEUT % 56.5 % (42.8-82.8); PLATELET COUNT 285 K/MM3 (134-434); RBC 4.39 M/mm3 (3.60-5.2); WHITE BLOOD COUNT 10.8 K/mm3 (4.0-10.0)
[2019-06-05] MEDS ORDERED: ASPIRIN 325 MG TABLET PO ONE (02:22)
[2019-06-05] MEDS ORDERED: ASPIRIN 81 MG CHEWABLE TABLETS ONE (02:27)
[2019-06-05] MEDS ORDERED: ASPIRIN 81 MG CHEWABLE TABLETS PO ONE (02:28)
[2019-06-05 02:33] LABS: INR 2.02 (0.83-1.09)
[2019-06-05 02:48] LABS: ALBUMIN 3.5 g/dl (3.4-5.0); ALK PHOS 87 U/L (45-117); ANION GAP 6 MMOL/L (8-16); BILIRUBIN,TOTAL 0.2 mg/dL (0.2-1); BLOOD UREA NITROGEN 11.9 mg/dL (7-18); CALCIUM 9.4 mg/dL (8.5-10.1); CHLORIDE 105 mmol/L (98-107); CHOLESTEROL 220 mg/dL (50-200); CO2 29 mmol/L (21-32); CREATININE 0.9 mg/dL (0.55-1.3); GLUCOSE,RANDOM 93 mg/dL (74-106); HDL CHOLESTEROL 56 mg/dL (40-60); LDL CHOLESTEROL (ONLY SJRH) 130 mg/dL (5-100); SGOT/AST 11 U/L (15-37); SGPT/ALT 15 U/L (13-61); SODIUM 140 mmol/L (136-145); TOT PROT 6.9 g/dl (6.4-8.2); TRIGLYCERIDES 200 mg/dL (0-150)
[2019-06-05] MEDS ORDERED: ACETAMINOPHEN 325 MG TABLET (FP) PO ONE (03:21)
[2019-06-05] MEDS ORDERED: ACETAMINOPHEN 325 MG TABLET (FP) ONE (03:24)
--- NOTE | 2019-06-05 04:10 | PN ---
Teaching Attending Note Name of Resident: Angy Medellin ATTENDING PHYSICIAN STATEMENT I saw and evaluated the patient. I reviewed the resident's note and discussed the case with the resident. I agree with the resident's findings and plan as documented. SUBJECTIVE: Patient is a 48 year old woman with PMH of HTN, Asthma (prior intubation), TIA ( 2009, previously on Coumadin), and RLE DVT removal and Varicose vein repair, who is presenting with R hand numbness, tingling, and weakness x 4 days. Patient states she recently had varicose vein repair done by Dr. Johnson 05/15 , and has had intermittent burning sensation on her inner leg as well for the same time period. Patient noted her R arm is becoming weaker, and she has now noted increasing contracture of her hand over the past few days. 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 Patient has had similar symptoms in the past, with negative MRI work-up (2012), but has not followed with neurology and was stopped on statin and AC medications "years ago". Denies any fevers/chills, headache, vision changes, syncope, chest pain, palpitations, SOB, nausea/vomiting, abdominal pain, urinary symptoms, diarrhea or constipation. Denies any cigarette, alcohol, or drug use. [place] denies any recent travel or sick contacts. Has FH of HTN. OBJECTIVE: Alert Vital Signs Period Temp Pulse Resp BP Sys/Shay Pulse Ox Last 24 Hr 98.0 F 72-76 18-18 144-180/72-91 99-99 HEENT: No Jaundice, eye redness or discharge, PERRLA, EOMI. Normocephalic, atraumatic. External ears are normal and hearing is grossly intact. No nasal discharge. Neck: Supple, nontender. No palpable adenopathy or thyromegaly. No JVD Chest: Good effort. Clear to auscultation and percussion. Heart: Regular. No S3, rub or murmur Abdomen: Not distended, soft, nontender and no HSM. No rebound or guarding. Normal bowel sounds. Ext: Peripheral pulses intact. No leg edema. Skin: Warm and dry. No petechiae, rash or ecchymosis. Neuro: Alert. Oriented x3. CN 2-12 grossly intact. Right hand contracture. Right upper extremity paresis with increased DTR and diminished sensation. DTR and sensation are symmetric in lower extremity. Psych: Appropriate mood and affect. Good insight. Home Medications Medication Instructions Recorded Lisinopril [Prinivil] 10 mg PO DAILY 09/23/15 Abnormal Lab Results 06/05/19 06/05/19 06/05/19 01:10 02:07 02:07 WBC 10.8 H PT with INR INR Anion Gap 6 L AST 11 L Creatine Kinase 211 H Triglycerides 200 H Cholesterol 220 H Total LDL Cholesterol 130 H Urine Blood 1+ H 06/05/19 02:07 WBC PT with INR 24.00 H INR 2.02 H Anion Gap AST Creatine Kinase Triglycerides Cholesterol Total LDL Cholesterol Urine Blood ASSESSMENT AND PLAN: 1. Rule out CVA - Has been symptomatic for over 4 days and is outside the window for tPA. DVT studies showed superficial thrombophlebitis of right saphenous vein in RLE; RUE negative for DVT. No acute abnormality on head CT. EKG is NSR with t wave inversion in III and initial troponin is negative. Will admit to telemetry, keep her NPO, do speech and swallow, give lipitor 80 mg ( unclear why statin was stopped in the past) and ASA 81 mg, get ECHO, carotid doppler, TSH, brain MRI/MRA and consult neurology and PT. Mild leukocytosis may be due to stress - will monitor closely, repeat urinalysis in view of hematuria and trend CPK while hydrating gently. Will continue comprehensive care for all of patients comorbid conditions. 2. Obesity Counseled on the risks associated with obesity. Will provide patient all the necessary assistance, counseling and positive reinforcement to facilitate weight loss. Consult controls design engineer. 3. Hypertension - Will practice permissive hypertension for now. Restart suitable outpatient antihypertensive drugs when clinically appropriate. Patient counseled on the injurious effects of uncontrolled hypertension. Nonpharmacologic measures to control hypertension like weight loss, salt restriction and exercise discussed. Importance of adherence to treatment regimen and attainment of normotension emphasized. 4. DVT prophylaxis - Lovenox 40 mg SQ q 24 hours. 5. Advance directives - Full code
[2019-06-05] MEDS ORDERED: ACETAMINOPHEN 325 MG TABLET (FP) PO PRN (05:30)
--- NOTE | 2019-06-05 05:38 | HP ---
CHIEF COMPLAINT: Rt sided weakness PCP: Dr. Flanagan HISTORY OF PRESENT ILLNESS: This is a 48 y/o F with a PMHx of HTN, TIA (11/2009) , b/l varicocelectomies (most recently 05/[address] Johnson), Asthma, who presents after having Rt sided weakness since sunday associated with numbness and tingling on RUE especially. She noticed it was worse while she wore heels during sunday mass but her daughter noticed that the patient had difficulty ambulating straight. The tingling and weakness initiated in the Rt leg and traveled upwards to her RUE. She had a f/u appt at Dr. Gonzalez office a few days later where a sonogram of her RLE showed some fluid at the catheter site at the Rt medial thigh area due to "leaky valve". She noticed her BP today was 190/100. Pt denies any recent travel, sickness, trauma, cp, sob, fever, chills, nausea, vomiting, abd pain, bowel/bladder incontinence, saddle anesthesia. She has received a flu shot. ER course was notable for: (1) RUE duplex negative (2) RLE duplex- superficial thrombophlebitis of saphenous vein (3) EKG nsr, normal QTc Recent Travel: Denies PAST MEDICAL HISTORY: as seen in HPI PAST SURGICAL HISTORY: hysterectomy, cholecystectomy, appendectomy, 2 c sections Social History: Smoking: denies Alcohol: denies Drugs: denies Allergies morphine Allergy (Verified 06/04/19 21:57) Itching propoxyphene napsylate [From Darvocet-N 100] Allergy (Verified 06/04/19 21:57) Itching HOME MEDICATIONS: Home Medications Medication Instructions Recorded Lisinopril [Prinivil] 10 mg PO DAILY 09/23/15 REVIEW OF SYSTEMS negative except as shown in HPI PHYSICAL EXAMINATION Vital Signs - 24 hr 06/04/19 06/05/19 06/05/19 21:54 00:35 00:43 Temperature 98.0 F Pulse Rate 72 Pulse Rate [ Radial] Respiratory 18 Rate Blood Pressure 180/91 H Blood Pressure 145/72 [Left Arm] O2 Sat by Pulse 99 99 Oximetry (%) 06/05/19 06/05/19 03:28 03:31 Temperature Pulse Rate Pulse Rate [ 76 Radial] Respiratory 18 Rate Blood Pressure Blood Pressure 144/81 [Left Arm] O2 Sat by Pulse 99 99 Oximetry (%) GENERAL: somnolent, fully oriented, in no acute distress. HEAD: Normal with no signs of trauma. EYES: Pupils equal, round and reactive to light, extraocular movements intact, EARS, NOSE, THROAT: Ears normal, nares patent, oropharynx clear without exudates. NECK: Normal range of motion, supple without lymphadenopathy, JVD, or masses. LUNGS: Breath sounds equal, clear to auscultation bilaterally. No wheezes, and no crackles. No accessory muscle use. HEART: Regular rate and rhythm, normal S1 and S2 without murmur, rub or gallop. ABDOMEN: Soft, nontender, not distended, normoactive bowel sounds, no guarding, no rebound, no masses. MUSCULOSKELETAL: Normal range of motion at all joints. No bony deformities or tenderness. UPPER EXTREMITIES: 2+ pulses, RUE weakness 3/5 w resistance but passive full rom , Lt side 5/5, slight pronator drift Rt side. LOWER EXTREMITIES: 2+ pulses, warm well perfused, Rt inner thigh very tender to palp, no erthema, ecchymosis present, No calf tenderness. No peripheral edema. NEUROLOGICAL: Cranial nerves II-XII intact. Normal speech. minimal weakness in shoulder shrugging, EOM intact, finger to nose test negative, RUE and RLE sensation impaired up to knee and below knee it was normal. RLE weakness 2/5 ROM , babinski positive b/l, brisk DTR's on Rt side Laboratory Results - last 24 hr 06/05/19 06/05/19 06/05/19 01:10 02:07 02:07 WBC 10.8 H RBC 4.39 Hgb 11.9 Hct 37.1 MCV 84.5 MCH 27.1 MCHC 32.1 RDW 14.0 Plt Count 285 MPV 7.8 Absolute Neuts (auto) 6.1 Neutrophils % 56.5 Lymphocytes % 36.1 Monocytes % 6.0 Eosinophils % 0.7 Basophils % 0.7 D Nucleated RBC % 0 PT with INR INR PTT (Actin FS) Sodium 140 Potassium 4.0 Chloride 105 Carbon Dioxide 29 Anion Gap 6 L BUN 11.9 Creatinine 0.9 Est GFR (CKD-EPI)AfAm 87.02 Est GFR (CKD-EPI)NonAf 75.08 Random Glucose 93 Calcium 9.4 Magnesium 2.0 Total Bilirubin 0.2 AST 11 L ALT 15 Alkaline Phosphatase 87 Creatine Kinase 211 H Creatine Kinase Index 0.5 CK-MB (CK-2) 1.2 Troponin I < 0.02 Total Protein 6.9 Albumin 3.5 Triglycerides 200 H Cholesterol 220 H Total LDL Cholesterol 130 H HDL Cholesterol 56 Urine Color Yellow Urine Appearance Clear Urine pH 7.0 Ur Specific [place] 1.021 Urine Protein Negative Urine Glucose (UA) Negative Urine Ketones Negative Urine Blood 1+ H Urine Nitrite Negative Urine Bilirubin Negative Urine Urobilinogen 1.0 Ur Leukocyte Esterase Negative Urine WBC (Auto) 1 Urine RBC (Auto) 10 Urine Casts (Auto) 1 U Epithel Cells (Auto) 1.0 Urine Bacteria (Auto) 16.1 06/05/19 06/05/19 02:07 02:07 WBC RBC Hgb Hct MCV MCH MCHC RDW Plt Count MPV Absolute Neuts (auto) Neutrophils % Lymphocytes % Monocytes % Eosinophils % Basophils % Nucleated RBC % PT with INR 24.00 H INR 2.02 H PTT (Actin FS) 35.9 Sodium Potassium Chloride Carbon Dioxide Anion Gap BUN Creatinine Est GFR (CKD-EPI)AfAm Est GFR (CKD-EPI)NonAf Random Glucose Calcium Magnesium Total Bilirubin AST ALT Alkaline Phosphatase Creatine Kinase Creatine Kinase Index CK-MB (CK-2) Troponin I Total Protein Albumin Triglycerides Cholesterol Total LDL Cholesterol HDL Cholesterol Urine Color Urine Appearance Urine pH Ur Specific [place] Urine Protein Urine Glucose (UA) Urine Ketones Urine Blood Urine Nitrite Urine Bilirubin Urine Urobilinogen Ur Leukocyte Esterase Urine WBC (Auto) Urine RBC (Auto) Urine Casts (Auto) U Epithel Cells (Auto) Urine Bacteria (Auto) ASSESSMENT/PLAN: This is a 48 y/o F with a PMHx of HTN, TIA (11/2009), b/l varicocelectomies ( most recently 05/[address] Johnson), Asthma, who presents after having Rt sided weakness since sunday associated with numbness and tingling on RUE especially. #R/O CVA/dymelinating dx/UMN - CT head negative for acute hemorrhage - brisk DTR's babinski positive cannot r/o UMN lesion w/o MRI. - will consult neuro plater production - INR: 2.02 pt denies being on coumadin (day team confirm with pharmacy), no abnormal lft's, will rpt in AM - MRI/MRA - ESR/CRP - TSH - echo, carotid - start ASA, crestor 10 - speech and swallow consult - Physical therapy - fall precautions - lipid panel: TG- 200, chol-200, ldl- 130, hdl-56 #Leukocytosis - leukocytosis 10.8 minimal doubt infection will rpt in AM - ? infection in mid rt thigh (thrombophlebitis) - nonerythematous, but very tender to palpation #HTN - will hold antihypertensive agents at this time as we do not want to lower BP to quickly in potential acute ischemic stroke #Hematuria - UA 1+ blood - CK 211 - gentle hydration - INR- 2.02 - Rpt UA in AM - follow up with PCP for further w/u of hematuria if persistent - Visit type - Emergency Visit Emergency Visit: Yes ED Registration Date: 06/05/19 Care time: The patient presented to the Emergency Department on the above date and was hospitalized for further evaluation of their emergent condition. - New Patient This patient is new to me today: Yes Date on this admission: 06/05/19 - Critical Care Critical Care patient: No ATTENDING PHYSICIAN STATEMENT I saw and evaluated the patient. I reviewed the resident's note and discussed the case with the resident. I agree with the resident's findings and plan as documented. SUBJECTIVE: OBJECTIVE: ASSESSMENT AND PLAN:
[2019-06-05] MEDS: SODIUM CHLORIDE 1,000 ML IV SCH (05:58)
[2019-06-05 08:29] LABS: BASO % 0.6 % (0-2.0); EOS % 0.8 % (0-4.5); HEMATOCRIT 36.6 % (32.4-45.2); LYMPH % 41.3 % (8-40); MCH 27.7 pg (25.7-33.7); MCHC 32.9 g/dl (32.0-36.0); MEAN CELL VOLUME 84.3 fl (80-96); MEAN PLT VOLUME 7.7 fl (7.5-11.1); MONO % 5.9 % (3.8-10.2); NEUT % 51.4 % (42.8-82.8); PLATELET COUNT 283 K/MM3 (134-434); RBC 4.34 M/mm3 (3.60-5.2); WHITE BLOOD COUNT 8.9 K/mm3 (4.0-10.0)
[2019-06-05 08:44] LABS: INR 0.99 (0.83-1.09); PROTHROMBIN TIME (PATIENT) 11.7 SEC (9.7-13.0)
[2019-06-05 09:24] LABS: ANION GAP 5 MMOL/L (8-16); BLOOD UREA NITROGEN 9.7 mg/dL (7-18); CALCIUM 8.8 mg/dL (8.5-10.1); CHLORIDE 106 mmol/L (98-107); CO2 27 mmol/L (21-32); CREATININE 0.8 mg/dL (0.55-1.3); GLUCOSE,RANDOM 87 mg/dL (74-106); MAGNESIUM 2.1 mg/dL (1.8-2.4); PHOSPHOROUS 4.1 mg/dL (2.5-4.9); POTASSIUM 3.9 mmol/L (3.5-5.1); SODIUM 139 mmol/L (136-145)
[2019-06-05 09:39] LABS: ERYTHROCYTE SEDIMENTATION RATE 20 mm/hr (0-20)
[2019-06-05] MEDS: ENOXAPARIN NA (PORCINE) 40 MG/0.4 ML DISP.SYRIN SQ SCH (10:32)
[2019-06-05] MEDS: ASPIRIN COATED 81 MG TABLET.EC PO SCH (10:32)
--- NOTE | 2019-06-05 12:34 | CON.CARD ---
Cardiology Consult (text) - Consultation Consultation Note: cc: right arm tingling/weakness hpi: 48 f hx hld, htn, tia here with right arm tingling/weakness. No cp sob palps dizzy loc pnd orthopnea le edema. No hx hrt dz. pmh: per hpi psh: hysterectomy social: no tob fam: no premature cad, scd ros: per hpi; all others nl meds: Home Medications Medication Instructions Recorded Lisinopril [Prinivil] 10 mg PO DAILY 09/23/15 pe: Vital Signs Period Temp Pulse Resp BP Sys/Shay Pulse Ox Last 24 Hr 98.0 F 72-76 18-18 144-180/72-91 99-99 nad no jvd rrr s1s2 no mrg cta bl nl eff aao3 no le e/c/c abd nt nd pos ns no jaundice diaphoresis pos dp pt no carotid bruits Laboratory Last Values WBC 8.9 K/mm3 (4.0-10.0) 06/05/19 08:15 RBC 4.34 M/mm3 (3.60-5.2) 06/05/19 08:15 Hgb 12.0 GM/dL (10.7-15.3) 06/05/19 08:15 Hct 36.6 % (32.4-45.2) 06/05/19 08:15 MCV 84.3 fl (80-96) 06/05/19 08:15 MCH 27.7 pg (25.7-33.7) 06/05/19 08:15 MCHC 32.9 g/dl (32.0-36.0) 06/05/19 08:15 RDW 14.0 % (11.6-15.6) 06/05/19 08:15 Plt Count 283 K/MM3 (134-434) 06/05/19 08:15 MPV 7.7 fl (7.5-11.1) 06/05/19 08:15 Absolute Neuts (auto) 4.6 K/mm3 (1.5-8.0) 06/05/19 08:15 Neutrophils % 51.4 % (42.8-82.8) 06/05/19 08:15 Lymphocytes % 41.3 % (8-40) H 06/05/19 08:15 Monocytes % 5.9 % (3.8-10.2) 06/05/19 08:15 Eosinophils % 0.8 % (0-4.5) 06/05/19 08:15 Basophils % 0.6 % (0-2.0) 06/05/19 08:15 Nucleated RBC % 0 % (0-0) 06/05/19 08:15 ESR 20 mm/hr (0-20) 06/05/19 08:15 PT with INR 11.70 SEC (9.7-13.0) 06/05/19 08:15 INR 0.99 (0.83-1.09) 06/05/19 08:15 PTT (Actin FS) 35.9 SECONDS (25.2-36.5) 06/05/19 02:07 Sodium 139 mmol/L (136-145) 06/05/19 08:15 Potassium 3.9 mmol/L (3.5-5.1) 06/05/19 08:15 Chloride 106 mmol/L (98-107) 06/05/19 08:15 Carbon Dioxide 27 mmol/L (21-32) 06/05/19 08:15 Anion Gap 5 MMOL/L (8-16) L 06/05/19 08:15 BUN 9.7 mg/dL (7-18) 06/05/19 08:15 Creatinine 0.8 mg/dL (0.55-1.3) 06/05/19 08:15 Est GFR (CKD-EPI)AfAm 100.33 06/05/19 08:15 Est GFR (CKD-EPI)NonAf 86.57 06/05/19 08:15 Random Glucose 87 mg/dL (74-106) 06/05/19 08:15 Hemoglobin A1c % 5.6 % (4.2-6.3) 06/05/19 08:15 Calcium 8.8 mg/dL (8.5-10.1) 06/05/19 08:15 Phosphorus 4.1 mg/dL (2.5-4.9) 06/05/19 08:15 Magnesium 2.1 mg/dL (1.8-2.4) 06/05/19 08:15 Total Bilirubin 0.2 mg/dL (0.2-1) 06/05/19 02:07 AST 11 U/L (15-37) L 06/05/19 02:07 ALT 15 U/L (13-61) 06/05/19 02:07 Alkaline Phosphatase 87 U/L (45-117) 06/05/19 02:07 Creatine Kinase 192 U/L (26-192) 06/05/19 06:00 Creatine Kinase Index 0.5 % (0.0-5.0) 06/05/19 06:00 CK-MB (CK-2) 1.1 ng/mL (0.5-3.6) 06/05/19 06:00 Troponin I < 0.02 ng/ml (0.00-0.05) 06/05/19 06:00 C-Reactive Protein < 0.3 MG/DL (0.00-0.3) 06/05/19 08:15 Total Protein 6.9 g/dl (6.4-8.2) 06/05/19 02:07 Albumin 3.5 g/dl (3.4-5.0) 06/05/19 02:07 Triglycerides 200 mg/dL (0-150) H 06/05/19 02:07 Cholesterol 220 mg/dL (50-200) H 06/05/19 02:07 Total LDL Cholesterol 130 mg/dL (5-100) H 06/05/19 02:07 HDL Cholesterol 56 mg/dL (40-60) 06/05/19 02:07 Vitamin B12 304 pg/ml (193-986) 06/05/19 08:15 TSH 1.42 uIU/ml (0.358-3.74) 06/05/19 08:15 Urine Color Yellow 06/05/19 01:10 Urine Appearance Clear 06/05/19 01:10 Urine pH 7.0 (5.0-8.0) 06/05/19 01:10 Ur Specific [place] 1.021 (1.010-1.035) 06/05/19 01:10 Urine Protein Negative (NEGATIVE) 06/05/19 01:10 Urine Glucose (UA) Negative (NEGATIVE) 06/05/19 01:10 Urine Ketones Negative (NEGATIVE) 06/05/19 01:10 Urine Blood 1+ (NEGATIVE) H 06/05/19 01:10 Urine Nitrite Negative (NEGATIVE) 06/05/19 01:10 Urine Bilirubin Negative (NEGATIVE) 06/05/19 01:10 Urine Urobilinogen 1.0 mg/dL (0.2-1.0) 06/05/19 01:10 Ur Leukocyte Esterase Negative (NEGATIVE) 06/05/19 01:10 Urine WBC (Auto) 1 /hpf (0-5) 06/05/19 01:10 Urine RBC (Auto) 10 /hpf (0-4) 06/05/19 01:10 Urine Casts (Auto) 1 /lpf (0-8) 06/05/19 01:10 U Epithel Cells (Auto) 1.0 /HPF (0-5/HPF) 06/05/19 01:10 Urine Bacteria (Auto) 16.1 /hpf (NEGATIVE) 06/05/19 01:10 echo 02/2013: small eff, low nl lvef, nl rv, no sig valve path ecg: sr nl intervals no ischemic changes head ct: no cva a/p: 48 f hx hld, htn, tia here with right arm tingling/weakness. possible cva, TIA: -check echo, monitor tele -head ct w/o acute findings, mri pending -neuro consulted hld: -cont statin htn: -cont home med
--- NOTE | 2019-06-05 12:34 | EKG ---
Test Reason : Blood Pressure : / mmHG Vent. Rate : 065 BPM Atrial Rate : 065 BPM P-R Int : 144 ms QRS Dur : 072 ms QT Int : 410 ms P-R-T Axes : 055 018 004 degrees QTc Int : 426 ms NORMAL SINUS RHYTHM NORMAL ECG WHEN COMPARED WITH ECG OF 18-APR-2017 12:04, NO SIGNIFICANT CHANGE WAS FOUND Confirmed by RUFUS ARRIAGA MD ([id number]) on 06/05/2019 12:33:57 PM Referred By: Confirmed By:RUFUS ARRIAGA MD
--- NOTE | 2019-06-05 13:11 | ECHO ---
Name: DELMI INESMARIAELENA Exam:Adult Echocardiogram Study Date: 06/05/2019 09:59 AM Age: 48 yrs Reason For Study: CVA Height: 60 in Weight: 178 lb BSA: 1.8 m2 MMode/2D Measurements & Calculations IVSd: 1.0 cm Ao root diam: 2.2 cm LVIDd: 3.4 cm LA dimension: 2.6 cm LVIDs: 2.3 cm ACS: 1.7 cm LVPWd: 1.3 cm EDV(Teich): 48.1 ml LVOT diam: 1.8 cm ESV(Teich): 18.7 ml RV S Domenico: 10.2 cm/sec Doppler Measurements & Calculations MV E max domenico: 104.6 cm/sec Ao V2 max: 153.8 cm/sec MV A max domenico: 112.0 cm/sec Ao max P.5 mmHg MV E/A: 0.93 Ao V2 mean: 110.0 cm/sec MV dec time: 0.20 sec Ao mean P.4 mmHg Ao V2 VTI: 36.8 cm JUAN(I,D): 1.3 cm2 JUAN(V,D): 1.2 cm2 LV V1 max P.1 mmHg MR max domenico: 304.0 cm/sec LV V1 mean P.3 mmHg MR max P.1 mmHg LV V1 max: 73.1 cm/sec LV V1 mean: 54.8 cm/sec LV V1 VTI: 18.7 cm SV(LVOT): 47.7 ml TR max domenico: 207.0 cm/sec TR max P.3 mmHg Med Peak E' Domenico: 9.9 cm/sec Med E/e': 10.5 Lat Peak E' Domenico: 8.8 cm/sec Lat E/e': 11.9 Procedure A complete two-dimensional transthoracic echocardiogram was performed (2D, M-mode, Doppler and color flow Doppler). The study was technically difficult with many images being suboptimal in quality. Left Ventricle The left ventricular size, thickness and function are normal. The left ventricular ejection fraction is normal. Ejection Fraction = 55-60%. No regional wall motion abnormalities noted. Right Ventricle The right ventricle is normal in size and function. Atria Normal left and right atrial size and function. Mitral Valve There is no mitral regurgitation noted. Tricuspid Valve There is trace tricuspid regurgitation. There was insufficient TR detected to calculate RV systolic p ressure. Aortic Valve No hemodynamically significant valvular aortic stenosis. No aortic regurgitation is present. Pulmonic Valve There is no pulmonic valvular regurgitation. Great Vessels The aortic root is normal size. Pericardium/Pleura There is no pericardial effusion. Interpretation Summary The study was technically difficult with many images being suboptimal in quality. The left ventricular size, thickness and function are normal The right ventricle is normal in size and function. There is trace tricuspid regurgitation. MD Jones Balderas 06/05/2019 01:10 PM
--- NOTE | 2019-06-05 14:05 | CONSULT ---
Admitting History and Physical - Primary Care Physician PCP: Cain Delacruz - Admission History of Present Illness: 48 f hx hld, htn, tia here with right arm tingling/weakness. Pt feeling exhausted, not herself since Sunday. Her daughter noticed she was dragging her leg. Denied speech, swallowing, language, cognitive deficits. 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 History of Recent Travel: No History - Admission Reason For Visit: HISTORY OF DEEP VEING THROMBOSIS, WEAKNESS - Diagnostics X-ray: Report Reviewed CT Scan: Report Reviewed MRI: Report Reviewed - General Mental Status: Alert and Oriented, Awake and Alert, Able to Follow Commands Attention: Intact Ability to Follow Directions: Excellent Head/Neck Control: WFL - Hearing Hearing: Normal Speech Evaluation - Communication Primary Language: JAPANESE Communication: Yes: Within Normal Limits Oral Expression Ability: Yes: No Impairment - Speech Production Able to Make Needs Known: Yes: WNL Intelligibility: Yes: WNL - Speech Characteristics Voice Loudness: Normal Voice Pitch: Yes: Normal Voice Phonatory-based Quality: Yes: Normal Speech Pattern: Normal Speech Clarity: < 100% Nasal Resonance: Normal Articulation: Yes: Precise Rate of Speech: Intact - Language/Auditory Comprehension Follows: Yes: 2 Stage Simple Commands Observation: Able to respond to yes/no queries: Yes, Yes/No Confusion: No, Comprehends Conversational Speech: Yes - Language/Verbal Expression Able to Respond to Simple Queries: Yes: WNL Able to Communicate Wants and Needs: Yes: WNL Functional Communication Status: Yes: WNL - Swallow Evaluation/Bedside Assessment Current Nutritional Intake: Thin Liquids Oral Secretions: Yes: WFL Dentition: Yes: Adequate Facial Symmetry at Rest: Symmetrical Facial Symmetry on Retraction: Symmetrical Facial Movement: Controlled Sensation: Normal Against Resistance Opening: Normal Against Resistance Closing: Normal Pucker Lips: Normal Smile: Normal Lingual Movement: Symmetric Lingual Speed of Movement: Normal Lingual Movement Strgth Against Opposition: Normal Lingual Movement Characteristics: Normal Velopharyngeal Movement: Normal Laryngeal Elevation: WFL Laryngeal Movement: Able to Palpate Rate of Intake: WFL Bolus Size: WFL Labial Seal: WFL Chewing: WFL Oral Prep Time: WFL A-P Transit: WFL Pocketing: None Timing of Swallow: WFL Coughing/Throat Clear: No Change in Voice: No Recommendations - Speech Evaluation, Impression/Plan Impression: Speech, swallowing, language, cognition intact - Dysphagia Impressions/Plan Swallowing Skills: WF Dysphagia Impressions: No Impairment *Silent aspiration: cannot be R/O at bedside - Recommendations Diet Consistency: Regular Medication Administration: Whole with water Liquids: Thin Liquids
--- NOTE | 2019-06-05 20:47 | CON.NEURO ---
Consult Consult Specialty:: NEUROLOGY-SAEID HERNANDEZ - History of Present Illness History of Present Illness: Pt is a 48 yo F, with PMH of HTN, asthma (prior intubation), TIA (2009, previously on Coumadin), and RLE DVT removal, varicose vein repair, who is presenting with R hand numbness, tingling, and weakness x4 days. Pt states she recently had varicose vein repair done by Dr. Johnson 05/15, and has had intermittent burning sensation on her inner leg as well for the same time period. Pt noted her R arm is becoming weaker, and she has now noted increasing contracture of her hand over the past few days. 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 Pt has had similar symptoms in the past, with negative MRI work-up (2012), but has not followed with neurology and was stopped on statin and AC medications "years ago ". Pt denies any fevers/chills, headache, vision changes, syncope, chest pain, palpitations, SOB, nausea/vomiting, abdominal pain, urinary symptoms, diarrhea/ constipation, or leg swelling. Allergies: NKDA PCP: Masha Social: Pt denies any cigarette, alcohol, or drug use. Pt denies any recent travel or sick contacts. Surgical: removal of DVT in RLE, varicose vein and "leaky valve" repair (2018) Family: no relevant history. 06/05/19 02:51 06/05/19 03:30 -Now denies paresthesias, only reports a subjective sense of weakness in right arm, denies all other neurologic symptoms. 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 History of Recent Travel: No Home Medications - Allergies Allergies/Adverse Reactions: Allergies Allergy/AdvReac Type Severity Reaction Status Date / Time morphine Allergy Itching Verified 06/04/19 21:57 propoxyphene napsylate Allergy Itching Verified 06/04/19 21:57 [From Darvocet-N 100] - Home Medications Home Medications: Ambulatory Orders Lisinopril [Prinivil] 10 mg PO DAILY 09/23/15 Physical Exam-Neuro Vital Signs: Vital Signs Temperature 98.0 F 06/04/19 21:54 Pulse Rate 70 06/05/19 20:25 Respiratory Rate 18 06/05/19 20:25 Blood Pressure 123/66 06/05/19 20:25 O2 Sat by Pulse Oximetry (%) 97 06/05/19 20:25 Labs: CBC, BMP 06/05/19 08:15 06/05/19 08:15 INR, PTT INR 0.99 (0.83-1.09) 06/05/19 08:15 - Neuro Exam Level Of Consciousness: Yes: Alert, Oriented to Person, Oriented to Place, Oriented to Time Eyes: Yes: PERRL Mini Mental Exam: Nl DTR's: 2+ Right Bicep, 2+ Left Tricep, 2+ Right Tricep, 2+ Left Brachioradialis , 2+ Right Brachioradialis, 3+ Left Bicep, 3+ Left Achilles, 3+ Right Achilles ( bilat knees-3+) Babinski: Absent Response to light touch: Abnormal (diminished by 80% in RUE/RLE(sparing face)) Motor Strength: 5/5: Left Arm, Right Arm, Left Leg, Right Leg (Therew is diminished tone in RUE) Gait: Normal (Except there is diminished right arm swing upon ambulation) Imaging - Results MRI: Report Reviewed (MRI/MRA without sig abn) Other: Report Reviewed (Carotid ultrasound without abn) Assessment/Plan Pt. presented with RLE paresthesias travelling up to RUE, these have resolved. She has o/e diminished tone RUE only and brisk reflexesw in both legs. DDX. includes a cervical/thoracic myelopathy, demyelinating dz., less likley sensory seizures and collagen vasc. dz. She is neurologically stable at this time. Suggest: MRI C/T spoinbe-can be done as outpt. Pls send ESR/CRP/antiphospholipid antibx/anti SSA/SSB abx(Sjogrens), anti DS DNA. I can see her in my office on Sunday at 1pm for [id number] [facility] [place], [address]. Thank you, Jeri Psoadas MD
[2019-06-05 21:19] VITALS: BMI 33.2
--- NOTE | 2019-06-05 21:48 | PN ---
Physical Exam: SUBJECTIVE: Patient seen and examined in the ED awaiting bed assignment. OBJECTIVE: Vital Signs Period Temp Pulse Resp BP Sys/Shay Pulse Ox Last 24 Hr 98 F-98.0 F 52-76 16-18 123-180/64-95 97-99 GENERAL: The patient is awake, alert, and fully oriented, in no acute distress. HEAD: Normal with no signs of trauma. EYES: PERRL, extraocular movements intact, sclera anicteric, conjunctiva clear. No ptosis. ENT: Ears normal, nares patent, oropharynx clear without exudates, moist mucous membranes. NECK: Trachea midline, full range of motion, supple. LUNGS: Breath sounds equal, clear to auscultation bilaterally, no wheezes, no crackles, no accessory muscle use. HEART: Regular rate and rhythm, S1, S2 without murmur, rub or gallop. ABDOMEN: Soft, nontender, nondistended, normoactive bowel sounds, no guarding, no rebound, no hepatosplenomegaly, no masses. EXTREMITIES: 2+ pulses, warm, well-perfused, no edema. NEUROLOGICAL: Cranial nerves II through XII grossly intact. Normal speech, gait not observed. PSYCH: Normal mood, normal affect. SKIN: Warm, dry, normal turgor, no rashes or lesions noted Laboratory Results - last 24 hr 06/05/19 06/05/19 06/05/19 01:10 02:07 02:07 WBC 10.8 H RBC 4.39 Hgb 11.9 Hct 37.1 MCV 84.5 MCH 27.1 MCHC 32.1 RDW 14.0 Plt Count 285 MPV 7.8 Absolute Neuts (auto) 6.1 Neutrophils % 56.5 Lymphocytes % 36.1 Monocytes % 6.0 Eosinophils % 0.7 Basophils % 0.7 D Nucleated RBC % 0 ESR PT with INR INR PTT (Actin FS) Sodium 140 Potassium 4.0 Chloride 105 Carbon Dioxide 29 Anion Gap 6 L BUN 11.9 Creatinine 0.9 Est GFR (CKD-EPI)AfAm 87.02 Est GFR (CKD-EPI)NonAf 75.08 Random Glucose 93 Hemoglobin A1c % Calcium 9.4 Phosphorus Magnesium 2.0 Total Bilirubin 0.2 AST 11 L ALT 15 Alkaline Phosphatase 87 Creatine Kinase 211 H Creatine Kinase Index 0.5 CK-MB (CK-2) 1.2 Troponin I < 0.02 C-Reactive Protein Total Protein 6.9 Albumin 3.5 Triglycerides 200 H Cholesterol 220 H Total LDL Cholesterol 130 H HDL Cholesterol 56 Vitamin B12 TSH Urine Color Yellow Urine Appearance Clear Urine pH 7.0 Ur Specific [place] 1.021 Urine Protein Negative Urine Glucose (UA) Negative Urine Ketones Negative Urine Blood 1+ H Urine Nitrite Negative Urine Bilirubin Negative Urine Urobilinogen 1.0 Ur Leukocyte Esterase Negative Urine WBC (Auto) 1 Urine RBC (Auto) 10 Urine Casts (Auto) 1 U Epithel Cells (Auto) 1.0 Urine Bacteria (Auto) 16.1 06/05/19 06/05/19 06/05/19 02:07 02:07 06:00 WBC RBC Hgb Hct MCV MCH MCHC RDW Plt Count MPV Absolute Neuts (auto) Neutrophils % Lymphocytes % Monocytes % Eosinophils % Basophils % Nucleated RBC % ESR PT with INR 24.00 H INR 2.02 H PTT (Actin FS) 35.9 Sodium Potassium Chloride Carbon Dioxide Anion Gap BUN Creatinine Est GFR (CKD-EPI)AfAm Est GFR (CKD-EPI)NonAf Random Glucose Hemoglobin A1c % Calcium Phosphorus Magnesium Total Bilirubin AST ALT Alkaline Phosphatase Creatine Kinase 192 Creatine Kinase Index 0.5 CK-MB (CK-2) 1.1 Troponin I < 0.02 C-Reactive Protein Total Protein Albumin Triglycerides Cholesterol Total LDL Cholesterol HDL Cholesterol Vitamin B12 TSH Urine Color Urine Appearance Urine pH Ur Specific [place] Urine Protein Urine Glucose (UA) Urine Ketones Urine Blood Urine Nitrite Urine Bilirubin Urine Urobilinogen Ur Leukocyte Esterase Urine WBC (Auto) Urine RBC (Auto) Urine Casts (Auto) U Epithel Cells (Auto) Urine Bacteria (Auto) 06/05/19 06/05/19 06/05/19 08:15 08:15 08:15 WBC 8.9 RBC 4.34 Hgb 12.0 Hct 36.6 MCV 84.3 MCH 27.7 MCHC 32.9 RDW 14.0 Plt Count 283 MPV 7.7 Absolute Neuts (auto) 4.6 Neutrophils % 51.4 Lymphocytes % 41.3 H Monocytes % 5.9 Eosinophils % 0.8 Basophils % 0.6 Nucleated RBC % 0 ESR 20 PT with INR INR PTT (Actin FS) Sodium 139 Potassium 3.9 Chloride 106 Carbon Dioxide 27 Anion Gap 5 L BUN 9.7 Creatinine 0.8 Est GFR (CKD-EPI)AfAm 100.33 Est GFR (CKD-EPI)NonAf 86.57 Random Glucose 87 Hemoglobin A1c % 5.6 Calcium 8.8 Phosphorus 4.1 Magnesium 2.1 Total Bilirubin AST ALT Alkaline Phosphatase Creatine Kinase Creatine Kinase Index CK-MB (CK-2) Troponin I C-Reactive Protein < 0.3 Total Protein Albumin Triglycerides Cholesterol Total LDL Cholesterol HDL Cholesterol Vitamin B12 304 TSH 1.42 Urine Color Urine Appearance Urine pH Ur Specific [place] Urine Protein Urine Glucose (UA) Urine Ketones Urine Blood Urine Nitrite Urine Bilirubin Urine Urobilinogen Ur Leukocyte Esterase Urine WBC (Auto) Urine RBC (Auto) Urine Casts (Auto) U Epithel Cells (Auto) Urine Bacteria (Auto) 06/05/19 08:15 WBC RBC Hgb Hct MCV MCH MCHC RDW Plt Count MPV Absolute Neuts (auto) Neutrophils % Lymphocytes % Monocytes % Eosinophils % Basophils % Nucleated RBC % ESR PT with INR 11.70 INR 0.99 PTT (Actin FS) Sodium Potassium Chloride Carbon Dioxide Anion Gap BUN Creatinine Est GFR (CKD-EPI)AfAm Est GFR (CKD-EPI)NonAf Random Glucose Hemoglobin A1c % Calcium Phosphorus Magnesium Total Bilirubin AST ALT Alkaline Phosphatase Creatine Kinase Creatine Kinase Index CK-MB (CK-2) Troponin I C-Reactive Protein Total Protein Albumin Triglycerides Cholesterol Total LDL Cholesterol HDL Cholesterol Vitamin B12 TSH Urine Color Urine Appearance Urine pH Ur Specific [place] Urine Protein Urine Glucose (UA) Urine Ketones Urine Blood Urine Nitrite Urine Bilirubin Urine Urobilinogen Ur Leukocyte Esterase Urine WBC (Auto) Urine RBC (Auto) Urine Casts (Auto) U Epithel Cells (Auto) Urine Bacteria (Auto) Active Medications Generic Name Dose Route Start Last Admin Trade Name Freq PRN Reason Stop Dose Admin Acetaminophen 650 mg 06/05/19 05:30 Tylenol - PO Q6H PRN PAIN 1-3 Aspirin 81 mg 06/05/19 10:00 06/05/19 10:32 Ecotrin - PO 81 mg DAILY CESAR Administration Enoxaparin Sodium 40 mg 06/05/19 10:00 06/05/19 10:32 Lovenox - SQ 40 mg DAILY CESAR Administration Sodium Chloride 1,000 mls @ 75 mls/hr 06/05/19 05:45 06/05/19 05:58 Normal Saline - IV 75 mls/hr ASDIR CESAR Administration Rosuvastatin Calcium 10 mg 06/05/19 22:00 06/05/19 21:35 Crestor - PO 10 mg HS CESAR Administration ASSESSMENT/PLAN:
[2019-06-05] MEDS ORDERED: ROSUVASTATIN CA 10 MG TABLET (FP) PO SCH (22:00)
[2019-06-06] MEDS: SODIUM CHLORIDE 1,000 ML IV SCH (06:19)
[2019-06-06 07:38] LABS: BASO % 0.3 % (0-2.0); EOS % 0.6 % (0-4.5); HEMOGLOBIN 12.3 GM/dL (10.7-15.3); LYMPH % 41.3 % (8-40); MCH 27.8 pg (25.7-33.7); MCHC 33.2 g/dl (32.0-36.0); MEAN CELL VOLUME 83.7 fl (80-96); MEAN PLT VOLUME 7.5 fl (7.5-11.1); MONO % 6.1 % (3.8-10.2); NEUT % 51.7 % (42.8-82.8); PLATELET COUNT 304 K/MM3 (134-434); RBC 4.42 M/mm3 (3.60-5.2); RDW 14.2 % (11.6-15.6); WHITE BLOOD COUNT 7.9 K/mm3 (4.0-10.0)
[2019-06-06 08:15] LABS: ALBUMIN 3.3 g/dl (3.4-5.0); BILIRUBIN,TOTAL 0.2 mg/dL (0.2-1); CREATININE 0.8 mg/dL (0.55-1.3); MAGNESIUM 2.4 mg/dL (1.8-2.4); POTASSIUM 4.2 mmol/L (3.5-5.1); TOT PROT 6.5 g/dl (6.4-8.2)
[2019-06-06] MEDS: ENOXAPARIN NA (PORCINE) 40 MG/0.4 ML DISP.SYRIN SQ SCH (09:47)
[2019-06-06] MEDS: ASPIRIN COATED 81 MG TABLET.EC PO SCH (09:48)
--- NOTE | 2019-06-06 10:08 | PN ---
Progress Note, Physician Chief Complaint: Still hard time moving right side - Current Medication List Current Medications: Active Medications Acetaminophen (Tylenol -) 650 mg PO Q6H PRN PRN Reason: PAIN 1-3 Aspirin (Ecotrin -) 81 mg PO DAILY [facility] Last Admin: 06/06/19 09:48 Dose: 81 mg Enoxaparin Sodium (Lovenox -) 40 mg SQ DAILY [facility] Last Admin: 06/06/19 09:47 Dose: 40 mg Sodium Chloride (Normal Saline -) 1,000 mls @ 75 mls/hr IV ASDIR [facility] Last Admin: 06/06/19 06:19 Dose: 75 mls/hr Rosuvastatin Calcium (Crestor -) 10 mg PO HS [facility] Last Admin: 06/05/19 21:35 Dose: 10 mg - Objective Vital Signs: Vital Signs Temperature 98 F 06/06/19 06:19 Pulse Rate 59 L 06/06/19 06:19 Respiratory Rate 12 06/06/19 06:19 Blood Pressure 135/85 06/06/19 07:12 O2 Sat by Pulse Oximetry (%) 99 06/05/19 21:11 Constitutional: Yes: No Distress, Calm Cardiovascular: Yes: Regular Rate and Rhythm Respiratory: Yes: CTA Bilaterally Gastrointestinal: Yes: Soft (NT) Edema: No Neurological: Yes: Alert, Oriented Labs: CBC, BMP 06/06/19 06:25 06/06/19 06:25 INR, PTT INR 0.99 (0.83-1.09) 06/05/19 08:15 - ....Imaging EKG: Other (TELE: NSR) Assessment/Plan echo 02/2013: small eff, low nl lvef, nl rv, no sig valve path ecg: sr nl intervals no ischemic changes head ct: no cva a/p: 48 f hx hld, htn, tia here with right arm tingling/weakness. possible cva, TIA: -echo wnl -Carotid WNL -MRI/A neg -neuro following. hld: -cont statin htn: -cont home med Right greater saphenous vein thrombus: -superficial -Defer to PMD, consider vascular consult
--- NOTE | 2019-06-06 10:54 | CONSULT ---
- Consultation REQUESTING PROVIDER: Vascular Surgery - Alessandro Sparrow CONSULT REQUEST: We have been asked to surgically evaluate this patient for RLE thrombophlebitis Hospitalist [facility] REPA[facility] Called to howieal 48 yo female with PMHx significant for CVA. Presents to [facility] ED w/ c/o RLE paresthesias travelling up to [facility]. Since admit to hospital, states the symptoms have resolved. A RLE duplex w/ findings of thrombus of superficial GSV, negative DVT. RUE duplex unremarkable. Currently on ASA 81 mg daily as well aas Lovenox 40 mg SQ daily. Denies n/v/f/c, CP, palpitations, SOB , GARCIA or hemoptysis. PMHx: HTN TIA (11/2009) Asthma PSHx: b/l varicocelectomies (most recently 05/[address] Johnson) Hysterectomy Cholecystectomy Appendectomy x2 Home Meds Lisinopril 10 mg PO Daily Allergies Morphine - itchy Darvocet - ithcy ROS: Unremarkable except for what's contained in the HPI. PE: GENERAL: A&O. NAD. HEAD: NC. AT. EYES: PERRL, sclera anicteric, conjunctiva clear. NECK: Normal ROM, supple without lymphadenopathy, JVD, or masses. LUNGS: CTA bilat HEART: RRR ABDOMEN: Soft, NT, ND, normoactive bowel sounds, no guarding, no rebound, no masses. No organomegaly. MUSCULOSKELETAL: No CVA tenderness. UE: 2+ pulses, warm, well-perfused. No cyanosis. Cap refill <2 seconds. No peripheral edema. LE: 2+ pulses, warm, well-perfused. No calf tenderness. No peripheral edema. NEUROLOGICAL: Normal speech, gait not observed. PSYCH: Cooperative. Good eye contact. Appropriate mood and affect. SKIN: Warm, dry, normal turgor, no rashes or lesions noted Last Vital Signs Temp Pulse Resp BP Pulse Ox 98 F 59 L 12 135/85 99 06/06/19 06:19 06/06/19 06:19 06/06/19 06:19 06/06/19 07:12 06/05/19 21:11 CBC, BMP 06/06/19 06:25 06/06/19 06:25 INR, PTT INR 0.99 (0.83-1.09) 06/05/19 08:15 Problem List - Problems (1) Thrombophlebitis Assessment/Plan: Mainstay of treatment is supportive and aimed focusing on relief of symptoms - Local heat - Leg elevation - ASA 81 mg daily as ordered Unable to use NSAIDs as she has h/o HTN. No surgical intervention. Above plan discussed with my attending and agrees. On behalf of Dr. Sparrow, thank you for the opportunity to participate in your patient's care. Code(s): I80.9 - PHLEBITIS AND THROMBOPHLEBITIS OF UNSPECIFIED SITE (2) History of TIA (transient ischemic attack) Code(s): Z86.73 - PRSNL HX OF TIA (TIA), AND CEREB INFRC W/O RESID DEFICITS (3) Asthma Code(s): J45.909 - UNSPECIFIED ASTHMA, UNCOMPLICATED (4) HTN (hypertension) Code(s): I10 - ESSENTIAL (PRIMARY) HYPERTENSION Visit type - Case Type Case Type: ED Admission - Emergency Emergency Visit: Yes ED Registration Date: 06/05/19 Care time: The patient presented to the Emergency Department on the above date and was hospitalized for further evaluation of their emergent condition. - New patient This patient is new to me today: Yes Date on this admission: 06/06/19
[2019-06-06] MEDS ORDERED: LISINOPRIL 10 MG TABLET (FP) PO SCH (14:15)
--- NOTE | 2019-06-06 14:45 | DS ---
Physical Exam: SUBJECTIVE: Patient seen and examined OBJECTIVE: Vital Signs Period Temp Pulse Resp BP Sys/Shay Pulse Ox Last 24 Hr 98 F-98.3 F 59-70 12-18 110-177/63-95 97-99 PHYSICAL EXAM GENERAL: The patient is awake, alert, and fully oriented, in no acute distress. HEAD: Normal with no signs of trauma. EYES: PERRL, extraocular movements intact, sclera anicteric, conjunctiva clear. ENT: Ears normal, nares patent, oropharynx clear without exudates, moist mucous membranes. NECK: Trachea midline, full range of motion, supple. LUNGS: Breath sounds equal, clear to auscultation bilaterally, no wheezes, no crackles, no accessory muscle use. HEART: Regular rate and rhythm, S1, S2 without murmur, rub or gallop. ABDOMEN: Soft, nontender, nondistended, normoactive bowel sounds, no guarding, no rebound, no hepatosplenomegaly, no masses. EXTREMITIES: 2+ pulses, warm, well-perfused, no edema. NEUROLOGICAL: Cranial nerves II through XII grossly intact. Normal speech, gait not observed. PSYCH: Normal mood, normal affect. SKIN: Warm, dry, normal turgor, no rashes or lesions noted. LABS Laboratory Results - last 24 hr 06/06/19 06/06/19 06/06/19 06:25 06:25 06:25 WBC 7.9 RBC 4.42 Hgb 12.3 Hct 37.0 MCV 83.7 MCH 27.8 MCHC 33.2 RDW 14.2 Plt Count 304 MPV 7.5 Absolute Neuts (auto) 4.1 Neutrophils % 51.7 Lymphocytes % 41.3 H Monocytes % 6.1 Eosinophils % 0.6 Basophils % 0.3 Nucleated RBC % 0 ESR 20 Sodium 141 Potassium 4.2 Chloride 107 Carbon Dioxide 29 Anion Gap 5 L BUN 10.0 Creatinine 0.8 Est GFR (CKD-EPI)AfAm 100.33 Est GFR (CKD-EPI)NonAf 86.57 Random Glucose 92 Calcium 9.0 Magnesium 2.4 Total Bilirubin 0.2 AST 7 L ALT 14 Alkaline Phosphatase 83 C-Reactive Protein Total Protein 6.5 Albumin 3.3 L 06/06/19 06:25 WBC RBC Hgb Hct MCV MCH MCHC RDW Plt Count MPV Absolute Neuts (auto) Neutrophils % Lymphocytes % Monocytes % Eosinophils % Basophils % Nucleated RBC % ESR Sodium Potassium Chloride Carbon Dioxide Anion Gap BUN Creatinine Est GFR (CKD-EPI)AfAm Est GFR (CKD-EPI)NonAf Random Glucose Calcium Magnesium Total Bilirubin AST ALT Alkaline Phosphatase C-Reactive Protein < 0.3 Total Protein Albumin HOSPITAL COURSE: Date of Admission:06/05/19 Date of Discharge: 06/06/19 Discharge Summary Problems reviewed: Yes Reason For Visit: HISTORY OF DEEP VEING THROMBOSIS, WEAKNESS Current Active Problems History of TIA (transient ischemic attack) (Acute) Right hand weakness (Acute) Thrombophlebitis (Acute) Condition: Stable - Instructions Diet, Activity, Other Instructions: Mrs Amari: You were admitted for right sided weakness and your brain MRI is negative which means there is no stroke. You continue to have right sided weakness and therefore we will be setting you up with home physical therapy. Please use the rolling walker when you walk around. During your stay your cholesterol levels were elevated and we started you on Crestor 10mg ONCE per day. We have called in your medications to your home pharmacy listed with us. You were also found to have a superfical thrombosis in your right leg. You were seen by the vascular surgeon and recommendations are that you apply: - Local heat - Leg elevation - ASA 81 mg daily as ordered Please have your right leg looked at by your vascular surgeon or you can choose to return to Dr. Sparrow as an outpatient by calling his office. You may need to have another doppler to make sure the clot does not get bigger in size. FOLLOW UPs: During your stay you were evaluated by a neurologist and you have a follow up appt made for: Sunday at 1pm for follow up-[address] [place] [address], [address] Dr[address] Posadas. Please see your PCP within 3-5 days of discharge for follow up and have your right leg re-evaluated. Thank you for allowing us to care for you. Manasa Casas NP [facility] Referrals: Tyler Flanagan MD [Primary Care Provider] - Alessandro Sparrow DO [Staff Physician] - Disposition: VNS/HOME HEALTH CARE - Home Medications Comprehensive Discharge Medication List: Ambulatory Orders Lisinopril [Prinivil] 10 mg PO DAILY 09/23/15 Aspirin Coated [Ecotrin -] 81 mg PO DAILY #90 tablet.ec 06/06/19 Blood Pressure Test Kit-Wrist [Blood Pressure Kit] 1 each [facility] DAILY #1 kit Rosuvastatin Calcium [Crestor] 10 mg PO DAILY #90 tablet 06/06/19 Rosuvastatin [Crestor -] 10 mg PO HS #90 tablet 06/06/19
[2019-06-06 15:15] VITALS: BP 150/82; PULSE 64; TEMP 98
== END 2019-06-06 16:47 | disposition home health service (06) ==
LOC: JER 21:53 → JERBED 06-05 03:21 → INTOOBSV 06-05 03:21 → UNDOADMOB 06-05 03:21 → J2W 06-05 20:57 → JERBED 06-05 20:57 → J2W 06-06 14:18
PROVIDERS: ADMIT Internal Medicine; ATTEND Nurse Practitioner Family
PROC: 3E0337Z Introduction of Electrolytic and Water Balance Substance into Peripheral Vein, Percutaneous Approach (ICD-10-PCS; principal; 2019-06-06)
PROC: 3E013GC Introduction of Other Therapeutic Substance into Subcutaneous Tissue, Percutaneous Approach (ICD-10-PCS; 2019-06-06)
DX: I80.01 Phlebitis and thrombophlebitis of superficial vessels of right lower extremity (principal); R53.1 Weakness; R20.2 Paresthesia of skin; R31.9 Hematuria, unspecified; D72.829 Elevated white blood cell count, unspecified; I10 Essential (primary) hypertension; J45.909 Unspecified asthma, uncomplicated; E78.5 Hyperlipidemia, unspecified; E66.9 Obesity, unspecified; Z68.33 Body mass index [BMI] 33.0-33.9, adult; Z29.8 Encounter for other specified prophylactic measures; Z88.6 Allergy status to analgesic agent; Z88.8 Allergy status to other drugs, medicaments and biological substances; Z86.73 Personal history of transient ischemic attack (TIA), and cerebral infarction without residual deficits; Z86.718 Personal history of other venous thrombosis and embolism; Z79.82 Long term (current) use of aspirin
CPT/HCPCS: 36415; 70450-TC; 70544-TC; 70551-TC; 80048; 80053; 80061; 81003; 82550; 82553; 82607; 83036; 83721; 83735; 84100; 84443; 84484; 85025; 85610; 85651; 85730; 86140; 86225; 86235; 93005; 93010; 93306-TC; 93880-TC; 93971; 93971-TC; 96372; 97116-GP; 97163-GP; 99285-25; G0378; J7030

== ENCOUNTER 2020-10-29 15:50 | Emergency (ER) | payer OTHER ==
[2020-10-29 16:06] VITALS: BP 159/86; PULSE 79; TEMP 99.4; BMI 34.0
[2020-10-29 17:42] LABS: EPI CELLS 17 /uL (0-25.1); HYALINE CASTS 0 /uL (0-3.1); URINE APPEARANCE CLEAR; URINE BACTERIA 442 /uL (0-1359); URINE BILIRUBIN NEGATIVE (NEGATIVE); URINE COLOR YELLOW; URINE GLUCOSE (UA) NEGATIVE (NEGATIVE); URINE KETONE NEGATIVE (NEGATIVE); URINE LEUK ESTERASE NEGATIVE (NEGATIVE); URINE NITRITE NEGATIVE (NEGATIVE); URINE PROTEIN NEGATIVE (NEGATIVE); URINE RBC 110 /uL (0-23.9); URINE UROBILINOGEN 0.2 mg/dL (0.2-1.0); URINE WBC 5 /uL (0-25.8)
[2020-10-29 18:59] LABS: BASO % 0.6 % (0-2.0); EOS % 0.2 % (0-4.5); HEMATOCRIT 40.9 % (32.4-45.2); HEMOGLOBIN 13.5 GM/dL (10.7-15.3); LYMPH % 27.5 % (8-40); MCH 27.7 pg (25.7-33.7); MEAN CELL VOLUME 83.9 fl (80-96); MEAN PLT VOLUME 7.7 fl (7.5-11.1); MONO % 4.6 % (3.8-10.2); NEUT % 67.1 % (42.8-82.8); PLATELET COUNT 378 K/MM3 (134-434); RBC 4.87 M/mm3 (3.60-5.2); RDW 14.7 % (11.6-15.6)
[2020-10-29 19:04] LABS: PROTHROMBIN TIME (PATIENT) 12.3 SEC (9.7-13.0)
[2020-10-29 19:07] LABS: ACTIVATED PTT 33.7 SECONDS (25.2-36.5)
[2020-10-29 19:18] LABS: CHLORIDE 101 mmol/L (98-107); SODIUM 135 mmol/L (136-145)
[2020-10-29 19:21] LABS: ALBUMIN 4.3 g/dl (3.4-5.0); ANION GAP 6 MMOL/L (8-16); BLOOD UREA NITROGEN 11.5 mg/dL (7-18); CALCIUM 9.9 mg/dL (8.5-10.1); CO2 28 mmol/L (21-32); GLUCOSE,RANDOM 93 mg/dL (74-106); LIPASE 43 U/L (73-393)
[2020-10-29 19:24] LABS: CREATININE 0.9 mg/dL (0.55-1.3); SGOT/AST 41 U/L (15-37); SGPT/ALT 38 U/L (13-61)
[2020-10-29 19:25] LABS: BILIRUBIN,TOTAL 0.4 mg/dL (0.2-1); TOT PROT 8.5 g/dl (6.4-8.2)
[2020-10-29 19:26] LABS: ALK PHOS 96 U/L (45-117)
[2020-10-29] MEDS ORDERED: ONDANSETRON 4 MG/2 ML VIAL IVPUSH ONE (19:56)
[2020-10-29] MEDS ORDERED: ONDANSETRON 4 MG/2 ML VIAL ONE (20:44)
[2020-10-29] MEDS ORDERED: ONDANSETRON 4 MG TABLET PO ONE (21:34)
[2020-10-29] MEDS ORDERED: FAMOTIDINE 10 MG TABLET PO ONE (21:34)
[2020-10-29] MEDS ORDERED: ACETAMINOPHEN 500 MG TABLET (FP) PO ONE (21:34)
[2020-10-29] MEDS ORDERED: MAG HYDROX/AL HYDROX/SIMETH 30 ML UNIT-DOSE CUP PO ONE (21:34)
[2020-10-29] MEDS ORDERED: ACETAMINOPHEN 325 MG TABLET (FP) ONE (21:52)
[2020-10-29] MEDS ORDERED: ONDANSETRON *ODT* 4 MG TABLET ONE (21:53)
[2020-10-29] MEDS ORDERED: FAMOTIDINE 20 MG TABLET ONE (21:53)
[2020-10-29] MEDS ORDERED: MAG HYDROX/AL HYDROX/SIMETH 30 ML UNIT-DOSE CUP ONE (21:53)
== END 2020-10-29 23:05 | disposition home or self-care (01) ==
LOC: JER 15:50
DX: R10.9 Unspecified abdominal pain (principal)
CPT/HCPCS: 36415; 70450-TC; 71046-TC-FY; 74177-TC; 80053; 81003; 82550; 82553; 83690; 84484; 85025; 85610; 85730; 86850; 86900; 86901; 87086; 93005; 93010; 99285-25; Q9967

== ENCOUNTER 2022-03-27 11:55 | Inpatient (IN) | payer BC, OTHER ==
[2022-03-27] MEDS ORDERED: ALBUTEROL SO4 2.5/IPRATROPIUM 0.5 INH SOL 3 ML VIAL.NEB. NEB SCH ×3 (12:45→16:00)
[2022-03-27] MEDS: ALBUTEROL SO4 2.5/IPRATROPIUM 0.5 INH SOL 3 ML VIAL.NEB. NEB ONE ×2 (12:46→12:51)
[2022-03-27] MEDS ORDERED: MAGNESIUM SULF 50% (8.12 MEQ/2 ML-1 GM VIAL) IVPB ONE (13:01)
[2022-03-27] MEDS ORDERED: methylPREDNISolone NA SUCC 125 MG/2 ML VIAL IVPUSH ONE (13:01)
[2022-03-27] MEDS ORDERED: ALBUTEROL SO4 2.5/IPRATROPIUM 0.5 INH SOL 3 ML VIAL.NEB. NEB ONE ×3 (14:01→16:13)
[2022-03-27] MEDS ORDERED: methylPREDNISolone NA SUCC 125 MG/2 ML VIAL ONE (14:03)
[2022-03-27] MEDS ORDERED: MAGNESIUM SULFATE IN WATER 2 GM/50 ML IVPB IVPB ONE (14:04)
[2022-03-27 14:46] LABS: BASO % 0.3 % (0-2.0); EOS % 0.2 % (0-4.5); HEMATOCRIT 35.3 % (32.4-45.2); HEMOGLOBIN 11.7 GM/dL (10.7-15.3); LYMPH % 25.1 % (8-40); MCH 27.9 pg (25.7-33.7); MCHC 33.1 g/dl (32.0-36.0); MEAN CELL VOLUME 84.2 fl (80-96); MEAN PLT VOLUME 7.5 fl (7.5-11.1); MONO % 3.2 % (3.8-10.2); NEUT % 71.2 % (42.8-82.8); PLATELET COUNT 320 10^3/uL (134-434); RBC 4.19 M/mm3 (3.60-5.2); RDW 14.6 % (11.6-15.6); WHITE BLOOD COUNT 14.3 K/mm3 (4.0-10.0)
[2022-03-27 14:51] LABS: VENOUS BASE EXCESS 1.1 mmol/L (-2-2); VENOUS O2 SATURATION 42.3 % (70-80); VENOUS PCO2 61.1 mmHg (38-52); VENOUS PH 7.303 (7.310-7.410)
[2022-03-27 14:54] LABS: INR 0.96 (0.83-1.09)
[2022-03-27 14:56] LABS: ACTIVATED PTT 30.1 SECONDS (25.2-36.5)
[2022-03-27 15:08] LABS: ALBUMIN 3.4 g/dl (3.4-5.0); BLOOD UREA NITROGEN 19.8 mg/dL (7-18); CALCIUM 8.6 mg/dL (8.5-10.1); MAGNESIUM 2.1 mg/dL (1.8-2.4)
[2022-03-27 15:11] LABS: CREATININE 1.1 mg/dL (0.55-1.3)
[2022-03-27 15:13] LABS: BILIRUBIN,TOTAL 0.4 mg/dL (0.2-1)
[2022-03-27 15:16] LABS: N-TERMINAL BNP 139.2 pg/ml (5-125)
[2022-03-27] MEDS ORDERED: methylPREDNISolone NA SUCC 40 MG/1 ML VIAL ONE (16:14)
[2022-03-27] MEDS: ALBUTEROL SO4 2.5/IPRATROPIUM 0.5 INH SOL 3 ML VIAL.NEB. NEB SCH ×2 (16:16→20:15)
[2022-03-27] MEDS: methylPREDNISolone NA SUCC 40 MG/1 ML VIAL IVPUSH SCH ×2 (16:33→22:03)
[2022-03-27] MEDS ORDERED: ACETAMINOPHEN 1000 MG/100 ML BAG IVPB ONE (17:28)
[2022-03-27] MEDS ORDERED: ACETAMINOPHEN INJECTION 100 ML IVPB ONE (17:38)
[2022-03-27] MEDS ORDERED: ALBUTEROL SO4 2.5/IPRATROPIUM 0.5 INH SOL 3 ML VIAL.NEB. NEB PRN (20:46)
[2022-03-27] MEDS ORDERED: BENZOCAINE/MENTH/CETYLPYRD CL 1 EACH LOZENGE MM PRN (20:46)
[2022-03-27 22:42] LABS: METHADONE, UR NEGATIVE (NEGATIVE)
[2022-03-27] MEDS ORDERED: guaiFENesin 200 MG/10 ML 10 ML UNIT-DOSE CUPS PO ONE (23:56)
[2022-03-28 01:36] VITALS: BMI 36.3
[2022-03-28] MEDS: methylPREDNISolone NA SUCC 40 MG/1 ML VIAL IVPUSH SCH ×4 (05:14→21:21)
[2022-03-28 09:02] LABS: BASO % 0.1 % (0-2.0); HEMATOCRIT 35.9 % (32.4-45.2); HEMOGLOBIN 11.5 GM/dL (10.7-15.3); LYMPH % 8.3 % (8-40); MCHC 32.2 g/dl (32.0-36.0); MEAN CELL VOLUME 83.9 fl (80-96); MEAN PLT VOLUME 7.9 fl (7.5-11.1); MONO % 3.1 % (3.8-10.2); NEUT % 88.5 % (42.8-82.8); PLATELET COUNT 333 10^3/uL (134-434); RBC 4.27 M/mm3 (3.60-5.2); RDW 15.2 % (11.6-15.6)
[2022-03-28 09:28] LABS: CALCIUM 8.8 mg/dL (8.5-10.1)
[2022-03-28 09:29] LABS: ALBUMIN 3.3 g/dl (3.4-5.0); BLOOD UREA NITROGEN 13.4 mg/dL (7-18)
[2022-03-28 09:32] LABS: CREATININE 0.9 mg/dL (0.55-1.3)
[2022-03-28 09:33] LABS: BILIRUBIN,TOTAL 0.2 mg/dL (0.2-1); TOT PROT 6.7 g/dl (6.4-8.2)
[2022-03-28] MEDS: guaiFENesin/D-METHORPHAN HB 10 ML UNIT-DOSE CUPS PO PRN ×3 (10:03→22:54)
[2022-03-28 10:05] LABS: ANISOCYTOSIS 0; MACROCYTOSIS 0
[2022-03-28] MEDS: ACETAMINOPHEN 1000 MG/100 ML BAG IVPB PRN ×2 (10:39→22:54)
[2022-03-28] MEDS: ENOXAPARIN NA (PORCINE) 40 MG/0.4 ML DISP.SYRIN SQ SCH ×2 (10:40→10:49)
[2022-03-28] MEDS: ALBUTEROL SO4 2.5/IPRATROPIUM 0.5 INH SOL 3 ML VIAL.NEB. NEB SCH ×2 (13:40→21:49)
[2022-03-28 14:03] LABS: COCAINE, UR NEGATIVE (NEGATIVE); OPIATES, URI NEGATIVE (NEGATIVE); PHENCYCLIDINE,URINE NEGATIVE (NEGATIVE); URINE AMPHETAMINES NEGATIVE (NEGATIVE); URINE BARBITURATES NEGATIVE (NEGATIVE); URINE BENZODIAZEPINES NEGATIVE (NEGATIVE)
[2022-03-28] MEDS: ROSUVASTATIN CA 20 MG TABLET PO SCH (21:18)
[2022-03-28] MEDS ORDERED: LISINOPRIL 10 MG TABLET PO SCH (22:00)
[2022-03-28] MEDS ORDERED: ATORVASTATIN CA 40 MG TABLET (FP) PO SCH (22:00)
[2022-03-29] MEDS: methylPREDNISolone NA SUCC 40 MG/1 ML VIAL IVPUSH SCH ×4 (03:54→21:36)
[2022-03-29] MEDS: guaiFENesin/D-METHORPHAN HB 10 ML UNIT-DOSE CUPS PO PRN ×2 (03:59→09:51)
[2022-03-29] MEDS: ALBUTEROL SO4 2.5/IPRATROPIUM 0.5 INH SOL 3 ML VIAL.NEB. NEB SCH ×6 (04:00→15:16)
[2022-03-29 09:16] LABS: HEMATOCRIT 35.7 % (32.4-45.2); HEMOGLOBIN 11.8 GM/dL (10.7-15.3); MCHC 33.1 g/dl (32.0-36.0); MEAN CELL VOLUME 84.8 fl (80-96); MEAN PLT VOLUME 7.8 fl (7.5-11.1); PLATELET COUNT 350 10^3/uL (134-434); RBC 4.21 M/mm3 (3.60-5.2); WHITE BLOOD COUNT 28.4 K/mm3 (4.0-10.0)
[2022-03-29 09:50] LABS: BLOOD UREA NITROGEN 21.9 mg/dL (7-18)
[2022-03-29] MEDS: amLODIPine BESYLATE 5 MG TABLET (FP) PO SCH (09:51)
[2022-03-29] MEDS: ENOXAPARIN NA (PORCINE) 40 MG/0.4 ML DISP.SYRIN SQ SCH ×2 (09:51→10:00)
[2022-03-29 09:53] LABS: CREATININE 0.9 mg/dL (0.55-1.3)
[2022-03-29] MEDS ORDERED: guaiFENesin/CODEINE 10 ML UNIT-DOSE CUPS PO SCH ×2 (11:00→13:00)
[2022-03-29] MEDS: guaiFENesin/CODEINE 10 ML UNIT-DOSE CUPS PO SCH ×3 (13:35→23:46)
[2022-03-29] MEDS ORDERED: guaiFENesin/D-METHORPHAN HB 10 ML UNIT-DOSE CUPS PO SCH (15:00)
[2022-03-29] MEDS: ROSUVASTATIN CA 20 MG TABLET PO SCH (21:36)
[2022-03-30] MEDS: methylPREDNISolone NA SUCC 40 MG/1 ML VIAL IVPUSH SCH ×4 (04:04→21:22)
[2022-03-30] MEDS: guaiFENesin/CODEINE 10 ML UNIT-DOSE CUPS PO SCH ×4 (05:44→23:58)
[2022-03-30] MEDS: ALBUTEROL SO4 2.5/IPRATROPIUM 0.5 INH SOL 3 ML VIAL.NEB. NEB SCH ×5 (07:18→23:54)
[2022-03-30] MEDS: ENOXAPARIN NA (PORCINE) 40 MG/0.4 ML DISP.SYRIN SQ SCH (09:07)
[2022-03-30] MEDS: amLODIPine BESYLATE 5 MG TABLET (FP) PO SCH (09:10)
[2022-03-30 09:49] LABS: HEMATOCRIT 36.9 % (32.4-45.2); HEMOGLOBIN 11.9 GM/dL (10.7-15.3); MCH 27.4 pg (25.7-33.7); MCHC 32.3 g/dl (32.0-36.0); MEAN CELL VOLUME 84.9 fl (80-96); MEAN PLT VOLUME 7.4 fl (7.5-11.1); PLATELET COUNT 375 10^3/uL (134-434); RBC 4.34 M/mm3 (3.60-5.2); RDW 15.2 % (11.6-15.6)
[2022-03-30 11:07] LABS: BLOOD UREA NITROGEN 25.8 mg/dL (7-18); CALCIUM 8.9 mg/dL (8.5-10.1)
[2022-03-30 11:11] LABS: CREATININE 1.1 mg/dL (0.55-1.3)
[2022-03-30] MEDS: NYSTATIN 500,000 UNITS/5 ML SUSPENSION PO SCH ×3 (11:50→23:58)
[2022-03-30] MEDS: BUDESONIDE/FORMETEROL FUMARATE 160/4.5 mcg INHALER IH SCH ×2 (16:39→21:24)
[2022-03-30] MEDS: ROSUVASTATIN CA 20 MG TABLET PO SCH (21:23)
[2022-03-31] MEDS: ALBUTEROL SO4 2.5/IPRATROPIUM 0.5 INH SOL 3 ML VIAL.NEB. NEB SCH ×7 (00:10→20:00)
[2022-03-31] MEDS: NYSTATIN 500,000 UNITS/5 ML SUSPENSION PO SCH ×4 (06:23→23:39)
[2022-03-31] MEDS: guaiFENesin/CODEINE 10 ML UNIT-DOSE CUPS PO SCH ×4 (06:23→23:39)
[2022-03-31] MEDS: methylPREDNISolone NA SUCC 40 MG/1 ML VIAL IVPUSH SCH (06:23)
[2022-03-31] MEDS: BUDESONIDE/FORMETEROL FUMARATE 160/4.5 mcg INHALER IH SCH (10:03)
[2022-03-31] MEDS: amLODIPine BESYLATE 5 MG TABLET (FP) PO SCH (10:03)
[2022-03-31] MEDS: ENOXAPARIN NA (PORCINE) 40 MG/0.4 ML DISP.SYRIN SQ SCH (10:03)
[2022-03-31 11:10] LABS: WHITE BLOOD COUNT 30.9 K/mm3 (4.0-10.0)
[2022-03-31 11:26] LABS: HEMATOCRIT 37.9 % (32.4-45.2); HEMOGLOBIN 12.2 GM/dL (10.7-15.3); MCH 27.8 pg (25.7-33.7); MCHC 32.3 g/dl (32.0-36.0); MEAN CELL VOLUME 86.1 fl (80-96); MEAN PLT VOLUME 7.7 fl (7.5-11.1); PLATELET COUNT 358 10^3/uL (134-434); RDW 15.4 % (11.6-15.6)
[2022-03-31 11:27] LABS: WHITE BLOOD COUNT 31.4 K/mm3 (4.0-10.0)
[2022-03-31 11:45] LABS: ALBUMIN 2.9 g/dl (3.4-5.0); CALCIUM 8.4 mg/dL (8.5-10.1)
[2022-03-31 11:46] LABS: BLOOD UREA NITROGEN 23.8 mg/dL (7-18)
[2022-03-31 11:48] LABS: CREATININE 1.1 mg/dL (0.55-1.3)
[2022-03-31 11:50] LABS: BILIRUBIN,TOTAL 0.3 mg/dL (0.2-1); TOT PROT 6.3 g/dl (6.4-8.2)
[2022-03-31 12:20] LABS: ANISOCYTOSIS 2+; MACROCYTOSIS 0
[2022-03-31] MEDS ORDERED: FLUCONAZOLE 150 MG TABLET PO ONE (13:49)
[2022-03-31] MEDS: AZITHROMYCIN 500 MG TABLET PO SCH (14:43)
[2022-03-31] MEDS: ROSUVASTATIN CA 20 MG TABLET PO SCH (22:09)
[2022-03-31] MEDS: LIDOCAINE VISCOUS 2% ORAL/TOP 15 ML UNIT-DOSE CUP MM PRN (22:51)
[2022-04-01] MEDS: ALBUTEROL SO4 2.5/IPRATROPIUM 0.5 INH SOL 3 ML VIAL.NEB. NEB SCH ×6 (04:00→20:11)
[2022-04-01 05:36] VITALS: RESP 18
[2022-04-01] MEDS: NYSTATIN 500,000 UNITS/5 ML SUSPENSION PO SCH ×4 (06:37→23:20)
[2022-04-01] MEDS: guaiFENesin/CODEINE 10 ML UNIT-DOSE CUPS PO SCH ×4 (06:37→23:20)
[2022-04-01] MEDS: LIDOCAINE VISCOUS 2% ORAL/TOP 15 ML UNIT-DOSE CUP MM PRN (09:58)
[2022-04-01] MEDS: amLODIPine BESYLATE 5 MG TABLET (FP) PO SCH (09:58)
[2022-04-01] MEDS: ENOXAPARIN NA (PORCINE) 40 MG/0.4 ML DISP.SYRIN SQ SCH (09:58)
[2022-04-01] MEDS: AZITHROMYCIN 500 MG TABLET PO SCH (09:58)
[2022-04-01 11:42] LABS: HEMOGLOBIN 11.5 GM/dL (10.7-15.3); MCH 26.9 pg (25.7-33.7); MEAN PLT VOLUME 7.6 fl (7.5-11.1); PLATELET COUNT 336 10^3/uL (134-434); RBC 4.29 M/mm3 (3.60-5.2); RDW 15.1 % (11.6-15.6); WHITE BLOOD COUNT 24.2 K/mm3 (4.0-10.0)
[2022-04-01 12:10] LABS: ALBUMIN 2.7 g/dl (3.4-5.0); BLOOD UREA NITROGEN 23.3 mg/dL (7-18); CALCIUM 8.3 mg/dL (8.5-10.1)
[2022-04-01 12:12] LABS: CREATININE 0.9 mg/dL (0.55-1.3)
[2022-04-01 12:14] LABS: TOT PROT 5.7 g/dl (6.4-8.2)
[2022-04-01 12:16] LABS: BILIRUBIN,TOTAL 0.5 mg/dL (0.2-1)
[2022-04-01 13:02] LABS: HIV INTERPRETATION NEGATIVE (NEGATIVE)
[2022-04-01] MEDS: ROSUVASTATIN CA 20 MG TABLET PO SCH (21:25)
[2022-04-02] MEDS: ALBUTEROL SO4 2.5/IPRATROPIUM 0.5 INH SOL 3 ML VIAL.NEB. NEB SCH ×6 (00:48→19:25)
[2022-04-02] MEDS: NYSTATIN 500,000 UNITS/5 ML SUSPENSION PO SCH ×3 (06:28→17:11)
[2022-04-02] MEDS: guaiFENesin/CODEINE 10 ML UNIT-DOSE CUPS PO SCH ×3 (06:28→17:10)
[2022-04-02] MEDS ORDERED: ACETAMINOPHEN 325 MG TABLET (FP) PO ONE (06:40)
[2022-04-02] MEDS ORDERED: diphenhydrAMINE HCL 25 MG CAPSULE (FP) PO ONE (06:59)
[2022-04-02] MEDS: amLODIPine BESYLATE 5 MG TABLET (FP) PO SCH (10:03)
[2022-04-02] MEDS: ENOXAPARIN NA (PORCINE) 40 MG/0.4 ML DISP.SYRIN SQ SCH (10:04)
[2022-04-02] MEDS: AZITHROMYCIN 500 MG TABLET PO SCH (10:04)
[2022-04-02 10:39] LABS: HEMATOCRIT 38.4 % (32.4-45.2); HEMOGLOBIN 12.9 GM/dL (10.7-15.3); MCH 28.1 pg (25.7-33.7); MCHC 33.5 g/dl (32.0-36.0); MEAN CELL VOLUME 83.9 fl (80-96); MEAN PLT VOLUME 7.3 fl (7.5-11.1); PLATELET COUNT 293 10^3/uL (134-434); RBC 4.58 M/mm3 (3.60-5.2)
[2022-04-02] MEDS ORDERED: amLODIPine BESYLATE 2.5 MG TABLET (FP) PO ONE (10:57)
[2022-04-02 12:08] LABS: ANISOCYTOSIS 0; HELMET CELLS 0; HOWELL-JOLLY BODIES 0; MACROCYTOSIS 0; OVALOCYTE 0; ROULEAU 0; SICKELED CELLS 0; TARGET CELLS 0; TEAR DROP CELLS 0; TOXIC GRANULATION 0
[2022-04-02] MEDS ORDERED: ONDANSETRON 4 MG/2 ML VIAL IVPUSH PRN (16:53)
[2022-04-03] MEDS: NYSTATIN 500,000 UNITS/5 ML SUSPENSION PO SCH ×4 (00:05→17:01)
[2022-04-03] MEDS: guaiFENesin/CODEINE 10 ML UNIT-DOSE CUPS PO SCH ×4 (00:05→17:23)
[2022-04-03] MEDS: ALBUTEROL SO4 2.5/IPRATROPIUM 0.5 INH SOL 3 ML VIAL.NEB. NEB SCH ×5 (00:49→16:45)
[2022-04-03 05:41] VITALS: BP 108/62; PULSE 94; TEMP 98.3
[2022-04-03] MEDS: ENOXAPARIN NA (PORCINE) 40 MG/0.4 ML DISP.SYRIN SQ SCH (10:00)
[2022-04-03] MEDS ORDERED: amLODIPine BESYLATE 5 MG TABLET (FP) PO SCH (10:00)
[2022-04-03] MEDS ORDERED: AMLODIPINE BESYLATE 5 MG, AMLODIPINE BESYLATE 2.5 MG PO SCH (10:00)
[2022-04-03 10:56] LABS: HEMATOCRIT 40.2 % (32.4-45.2); MCH 26.9 pg (25.7-33.7); MCHC 32.4 g/dl (32.0-36.0); MEAN CELL VOLUME 83.2 fl (80-96); MEAN PLT VOLUME 7.6 fl (7.5-11.1); PLATELET COUNT 324 10^3/uL (134-434); RBC 4.84 M/mm3 (3.60-5.2); RDW 15.3 % (11.6-15.6); WHITE BLOOD COUNT 23.4 K/mm3 (4.0-10.0)
[2022-04-03 12:03] LABS: ANISOCYTOSIS 0; MACROCYTOSIS 0
[2022-04-03] MEDS ORDERED: DOCUSATE NA 100 MG/10 ML UNIT-DOSE CUPS PO ONE (16:17)
== END 2022-04-03 19:00 | disposition home or self-care (01) | DRG 202 ==
LOC: JER 11:55 → JERBED 16:26 → J6S 20:20
DX: J45.901 Unspecified asthma with (acute) exacerbation (principal); J96.01 Acute respiratory failure with hypoxia; I10 Essential (primary) hypertension; E78.5 Hyperlipidemia, unspecified; Z86.73 Personal history of transient ischemic attack (TIA), and cerebral infarction without residual deficits; E66.9 Obesity, unspecified; Z68.36 Body mass index [BMI] 36.0-36.9, adult
CPT/HCPCS: 0241U-QW; 36415; 71045-TC-FY; 76705-TC; 80048; 80053; 80061; 80307; 82803; 83036; 83735; 83880; 84439; 84443; 84484; 85025; 85027; 85610; 85730; 87389; 87651; 93005; 93010; 94150; 94640; 94761; 99285-25

== ENCOUNTER 2023-01-08 22:41 | Emergency (ER) | payer OTHER ==
[2023-01-08 22:57] VITALS: BP 187/96; PULSE 70; RESP 18; TEMP 98; BMI 37.3
[2023-01-08] MEDS ORDERED: LIDOCAINE VISCOUS 2% ORAL/TOP 15 ML UNIT-DOSE CUP ONE (23:24)
[2023-01-08] MEDS ORDERED: AMOXICILLIN 500 MG CAPSULE (FP) PO ONE (23:39)
[2023-01-08] MEDS ORDERED: NAPROXEN 500 MG TABLET PO ONE (23:39)
[2023-01-08] MEDS ORDERED: AMOXICILLIN 250 MG CAPSULE ONE (23:47)
[2023-01-08] MEDS ORDERED: NAPROXEN 500 MG TABLET ONE (23:47)
== END 2023-01-08 23:53 | disposition home or self-care (01) ==
LOC: EDBD → EDSEX → FER 22:41
DX: S00.552A Superficial foreign body of oral cavity, initial encounter (principal)
CPT/HCPCS: 99283-25

== ENCOUNTER 2023-08-10 22:39 | Emergency (ER) | payer BC, OTHER ==
[2023-08-10 22:56] VITALS: RESP 18; BMI 37.4
[2023-08-10 23:12] VITALS: BP 178/87; PULSE 71; TEMP 98.6
== END 2023-08-10 23:26 | disposition home or self-care (01) ==
LOC: FER 22:39
DX: S62.101A Fracture of unspecified carpal bone, right wrist, initial encounter for closed fracture (principal); W18.39XA Other fall on same level, initial encounter
CPT/HCPCS: 73070-TC-RT-FY; 73110-TC-RT-FY; 73130-TC-RT-FY; 99283-25

== ENCOUNTER 2023-08-11 06:20 | Emergency (ER) | payer BC, OTHER ==
[2023-08-11] MEDS ORDERED: KETOROLAC TROMETHAMINE 60 MG/2 ML VIAL IM ONE (06:28)
[2023-08-11] MEDS ORDERED: KETOROLAC TROMETHAMINE 60 MG/2 ML VIAL ONE (06:28)
[2023-08-11 06:36] VITALS: BP 172/84; PULSE 72; RESP 18; TEMP 98.6; BMI 37.4
== END 2023-08-11 06:48 | disposition home or self-care (01) ==
LOC: FER 06:20
PROC: 3E0233Z Introduction of Anti-inflammatory into Muscle, Percutaneous Approach (ICD-10-PCS; principal; 2023-08-11)
DX: S52.501A Unspecified fracture of the lower end of right radius, initial encounter for closed fracture (principal); M25.531 Pain in right wrist; X58.XXXA Exposure to other specified factors, initial encounter
CPT/HCPCS: 99284-25

== ENCOUNTER 2023-10-06 20:20 | Emergency (ER) | payer BC, OTHER ==
[2023-10-06 20:29] VITALS: BMI 37.8
[2023-10-06] MEDS ORDERED: IBUPROFEN 400 MG TABLET (FP) PO ONE (21:10)
[2023-10-06] MEDS: IBUPROFEN 400 MG TABLET (FP) PO ONE (21:28)
[2023-10-06] MEDS ORDERED: guaiFENesin 200 MG/10 ML 10 ML UNIT-DOSE CUPS ONE (21:59)
[2023-10-06] MEDS ORDERED: ALBUTEROL SO4 2.5/IPRATROPIUM 0.5 INH SOL 3 ML VIAL.NEB. NEB ONE (21:59)
[2023-10-06] MEDS ORDERED: OSELTAMIVIR PHOSPHATE 75 MG CAPSULE ONE (22:00)
[2023-10-06] MEDS: OSELTAMIVIR PHOSPHATE 75 MG CAPSULE PO ONE (22:06)
[2023-10-06] MEDS: guaiFENesin 200 MG/10 ML 10 ML UNIT-DOSE CUPS PO ONE (22:06)
[2023-10-06] MEDS: ALBUTEROL SO4 2.5/IPRATROPIUM 0.5 INH SOL 3 ML VIAL.NEB. NEB SCH (22:06)
[2023-10-06 22:40] LABS: BASO % 0.2 % (0-2.0); HEMATOCRIT 38.9 % (32.4-45.2); HEMOGLOBIN 12.9 GM/dL (10.7-15.3); LYMPH % 5.8 % (8-40); MCH 27.8 pg (25.7-33.7); MCHC 33.1 g/dl (32.0-36.0); MEAN PLT VOLUME 7.1 fl (7.5-11.1); MONO % 5.3 % (3.8-10.2); NEUT % 88.7 % (42.8-82.8); PLATELET COUNT 252 10^3/uL (134-434); RBC 4.63 M/mm3 (3.60-5.2); RDW 14.6 % (11.6-15.6); WHITE BLOOD COUNT 9.9 K/mm3 (4.0-10.0)
[2023-10-06] MEDS: LACTATED RINGERS SOLUTION 1000 ML INFUS.BAG IV ONE ×2 (22:54→22:55)
[2023-10-06 23:10] LABS: POTASSIUM 4.1 mmol/L (3.5-5.1)
[2023-10-06 23:12] LABS: CALCIUM 9.4 mg/dL (8.5-10.1)
[2023-10-06 23:13] LABS: ALBUMIN 3.7 g/dl (3.4-5.0); BLOOD UREA NITROGEN 9.7 mg/dL (7-18)
[2023-10-06 23:16] LABS: CREATININE 1.1 mg/dL (0.55-1.3)
[2023-10-06 23:17] LABS: BILIRUBIN,TOTAL 0.4 mg/dL (0.2-1); TOT PROT 7.3 g/dl (6.4-8.2)
[2023-10-07 00:11] VITALS: BP 149/80; PULSE 92; RESP 18; TEMP 98.9
== END 2023-10-07 03:14 | disposition home or self-care (01) ==
LOC: JER 20:20
PROC: 3E0F7GC Introduction of Other Therapeutic Substance into Respiratory Tract, Via Natural or Artificial Opening (ICD-10-PCS; principal; 2023-10-06)
DX: J10.1 Influenza due to other identified influenza virus with other respiratory manifestations (principal); R05.9 Cough, unspecified; M79.10 Myalgia, unspecified site; R07.9 Chest pain, unspecified; R50.9 Fever, unspecified; Z20.822 Contact with and (suspected) exposure to COVID-19
CPT/HCPCS: 0241U-QW; 36415; 71046-TC-FY; 80053; 83605; 84484; 85025; 93005; 93010; 99285-25

== ENCOUNTER → 2024-09-10 | Day surgery (SDC) | payer BC, OTHER | END | disposition home or self-care (01) | LOC: JRADUS-SUR 09:22 | PROC: 0HBU3ZX Excision of Left Breast, Percutaneous Approach, Diagnostic (ICD-10-PCS; principal; 2024-09-10) | DX: C50.912 Malignant neoplasm of unspecified site of left female breast (principal) | CPT/HCPCS: 19083; 76942-TC; 77065-TC; 87899; 88305-TC; 88341-TC; 88342-TC; A4648 ==